=== PATIENT | male | born 1955 | race Caucasian/White ===

== ENCOUNTER → 2020-10-13 | Outpatient (CLI) | payer BC | LOC: M.LAB 07:22 | PROVIDERS: ATTEND Surgery | DX: L72.3 Sebaceous cyst (principal); E87.6 Hypokalemia; Z20.828 Contact with and (suspected) exposure to other viral communicable diseases ==

== ENCOUNTER 2021-01-07 21:19 | Inpatient (IN) | payer BC ==
[~2021-01-07] VITALS: Ht 188 cm; Wt 142.9 kg
--- NOTE | ~2021-01-07 | PROC ---
[address] [address] PROCEDURE REPORT Name: LYN BECK Room: [address] ADM IN M.R.#: [id number] Admission: 01/08/21 Attend Phys: Theresa Alas MD Discharge: Date of : 51 Report #: [id number] THIS REPORT FOR: cc: Yash Brenner MD, Matthew W. MD ~ [facility],Medical Records Staff For GI report, please see the Provation report in Perceptive 7 content. By: [id number] Records Staff [facility] /GLEND[place]
[2021-01-07 21:28] VITALS: BP 156/60
[2021-01-07] MEDS ORDERED: METFORMIN HCL500 M3 PO (21:34)
[2021-01-07] MEDS ORDERED: ELIQUIS5 MG PO (21:34)
[2021-01-07] MEDS ORDERED: LISINOPRIL10 MG PO (21:34)
[2021-01-07] MEDS ORDERED: IRON18 M1 PO (21:35)
[2021-01-07] MEDS ORDERED: DILTIAZEM ER180 M2 PO (21:35)
[2021-01-07] MEDS ORDERED: FUROSEMIDE 40 M40 MG PO (21:35)
[2021-01-07] MEDS ORDERED: PROSCAR 5MG TABL5 M1 PO (21:36)
[2021-01-07] MEDS ORDERED: PROTONIX 20 MG20 M1 PO (21:36)
[2021-01-07] MEDS ORDERED: INSULIN 70/30 (21:38)
[2021-01-07 22:15] LABS: ABSOLUTE BASOPHILS 0.1 thou/uL (0.0-0.2); ABSOLUTE EOSINOPHILS 0.1 thou/uL (0.0-0.7); ABSOLUTE LYMPHOCYTES 0.8 thou/uL (0.8-5.3); ABSOLUTE MONOCYTES 0.7 thou/uL (0.0-1.2); ABSOLUTE NEUTROPHILS 4.7 thou/uL (1.6-8.1); BASOPHILS 1.2 %; EOSINOPHILS 1.4 %; HEMATOCRIT 24.9 % (42.0-52.0); HEMOGLOBIN 7.6 gm/dL (14.0-18.0); LYMPHOCYTES 12.9 %; MCH 28.2 pg (26.0-34.0); MCHC 30.6 g/dL (28.0-37.0); MCV 92.1 fL (80.0-100.0); MONOCYTES 10.4 %; MPV 7.8 fl. (7.2-11.1); NUCLEATED RBCS 0 /100WBC; PLATELET COUNT* 345 thou/uL (150-400); POLYS 74.1 %; RDW-CV 14.6 % (10.5-14.5); WBC 6.3 thou/uL (4.0-11.0)
[2021-01-07 22:23] LABS: BE 6.3 mmol/L (-2 to +3); PO2 105.1 mmHg (75.0-100.0); pH 7.393 (7.340-7.450)
[2021-01-07 22:24] LABS: PCO2 54.2 mmHg (35.0-45.0)
[2021-01-07 22:29] LABS: APTT 27.5 Seconds (25.0-31.3); INR 1.1; PROTIME 11.4 Seconds (9.20-11.50)
[2021-01-07 22:48] LABS: POTASSIUM 4.8 mmol/L (3.5-5.1)
[2021-01-07 22:58] LABS: MAGNESIUM 2.3 mg/dL (1.8-2.4); PHOSPHORUS* 2.9 mg/dL (2.5-4.9); TOTAL BILIRUBIN 0.3 mg/dL (<0.1-1.0); TOTAL PROTEIN 6.8 g/dL (6.4-8.2)
[2021-01-07 22:59] LABS: URINE BILIRUBIN NEGATIVE (Negative); URINE BLOOD NEGATIVE (Negative); URINE CLARITY CLEAR; URINE COLOR YELLOW; URINE GLUCOSE-RANDOM TRACE (Negative); URINE KETONES NEGATIVE (Negative); URINE LEUKOCYTES-REFLEX NEGATIVE (Negative); URINE NITRITE-REFLEX NEGATIVE (Negative); URINE PROTEIN TRACE (Negative); URINE SPECIFIC GRAVITY 1.015 (1.005-1.030); URINE UROBILINOGEN 0.2 E.U./dl (0.2-1.0)
[2021-01-08 01:03] VITALS: BP 125/52
--- NOTE | 2021-01-08 04:07 | NUR ---
PT A+OX4. AMBULATED WITH STEADY GAIT FROM ER CART TO BATHROOM WITH O2 ON. PT REPORTS INCREASE SOA PAST WEEK. (CHRONIC) AFIB ON MONITOR. PT REQUESTED BREATHING TREATMENT. NOTIFIED BREATHING TREATMENT ORDERED AND RESPIRATORY NOTIFED. REPORT GIVEN TO MATHEW MCFADDEN.
[2021-01-08 04:36] VITALS: BP 126/50
--- NOTE | 2021-01-08 07:17 | NUR ---
ASSUMED PT CARE AT 0400. PT ADMITTED FOR DYSPNEA, GI BLEED W/ ANEMIA AND CHRONIC AFIB. PT IS A/OX4. PT HGB IS 7.4. PT HAD POSITIVE OCCULT STOOL CARDS IN ED. REPORT GIVEN TO DAYSHIFT NURSE TO HOLD PRESCRIBED ELIQUIS R/T GI BLEED AND ANEMIA. PT IS A.FIB ON THE MONITOR. PT HAS PRODUCTIVE COUGH. SPUTUM NOT OBSERVED. PT HAS PRN BREATHING TX'S ORDERED. PT IS ON 4L/NC. PTS LUNG SOUNDS ARE DIMINISHED. PT HAS CHRONIC COPD AND REPORTED SOA OVER THE PAST WEEK. PT O2 SAT 91%. PT HAS CHF. PT RLE IS 3+ EDEMA, LLE IS 2+. GASTROENTEROLOGY AND CARDIOLOGY HAS BEEN CONSULTED. PT IS NPO. PT HAS DIABETES. ACCUCHECK ACHS. PT DOES NOT RECALL THE NAME OF HIS HOME INSULIN. PT TO CONTACT TO CONFIRM INSULIN TYPE. DAYSHIFT NURSE NOTIFIED. PT DENIES C/O PAIN. PT RESTING IN BED WATCHING TV. FALL PRECAUTIONS IN PLACE FOR SAFETY. HOURLY ROUNDS COMPLETE CHARTED. MEDICATIONS ADMINISTERED PRESCRIBED. CALL LIGHT WITHIN REACH.
[2021-01-08 07:51] VITALS: BP 104/32
--- NOTE | 2021-01-08 08:58 | NUR ---
ASSUMED CARE OF PT THIS AM AROUND 0715- CARDAIC MONITOR IN PLACE ORDERED, TRACING AFIB/MARLA CONTROLLED- UPON ASSESSMENT PT NOTED TO BE RESTING IN BED- PT A&O X4-CONT OF BOWEL/BLADDER- MIN ASSIST X1 WITH RW FOR TRANSFERS- DIMINISED LUNG SOUNDS NOTED, DYSPNEA NOTED ON EXERTION- VSS, O2 SAT 91% ON 4L VIA NC- ABD SOFT/OBESE/NON-TENDER, BS X4 QUADS- LAST BM REPORTED 01/07/21- IV NOTED TO RIGHT AC INTACT AND SL- 2+ EDEMA NOTED TO LLE, 3+ RLE- CLEAR LIQIDS IN PLACE ORDERED, BS MONITORED ORDERED WITH SSI PRESCRIBED-CALL LIGHT AND PERSONAL BELONGINGS WITH IN REACH- ALL NEEDS MET AT THIS TIME
[2021-01-08] MEDS ORDERED: HUMULIN 70100 UNIT/2 SUBQ ×2 (09:13)
[2021-01-08] MEDS ORDERED: HUMALOG100 UNIT/1 SUBQ (09:14)
--- NOTE | 2021-01-08 11:59 | EKG ---
[place] [address] ELECTROCARDIOGRAM REPORT Name: LYN BECK Room: [address] ADM IN .R.#: [id number] Admission: 01/08/21 Attend Phys: Theresa Alas MD Discharge: Date of : 51 Date of Service: 01/07/212126 Report #: [id number] THIS REPORT FOR: //name// [facility] ED Test Date: 2021-01-07 Test Time: 21:27:13 Pat Name: LYN BECK Department: Room: [facility] Gender: M Biosecurity Officer: [place] : 1955 Requested By: Eva Nolasco Order Number: [id number] MD: Thomas Buenrostro Measurements Intervals [place] Rate: 85 P: PA: QRS: 82 QRSD: 88 T: 48 QT: 359 QTc: 427 Interpretive Statements Atrial fibrillation Borderline right axis deviation Borderline low voltage, extremity leads No previous ECG available for comparison Electronically Signed On 01-08-2021 11:59:44 VP PURCHASING by Thomas Buenrostro [email or web address] <ELECTRONICALLY SIGNED> By: Nae Buenrostro MD, FACC 01/08/21 1159 26 26 Nae Buenrostro MD, [facility] /EPI
[2021-01-08 12:00] VITALS: BP 145/61
[2021-01-08] MEDS ORDERED: FLOMAX0.4 MG PO (15:17)
[2021-01-08] MEDS ORDERED: ACTOS 45 MG45 M1 PO (15:23)
[2021-01-08] MEDS ORDERED: SIMVASTATIN40 MG PO (15:24)
[2021-01-08 16:00] VITALS: BP 120/56
[2021-01-08 20:00] VITALS: BP 148/57
[2021-01-09] VITALS (7 sets, daily range): BP systolic 137–158; BP diastolic 52–85
[2021-01-09 04:17] LABS: HEMATOCRIT 25.3 % (42.0-52.0); MCH 28.3 pg (26.0-34.0); MCHC 31.6 g/dL (28.0-37.0); MCV 89.7 fL (80.0-100.0); MPV 7.3 fl. (7.2-11.1); NUCLEATED RBCS 0 /100WBC; PLATELET COUNT* 359 thou/uL (150-400); RBC 2.83 mil/uL (4.50-6.00); RDW-CV 14.3 % (10.5-14.5)
[2021-01-09 04:52] LABS: ALBUMIN 3.1 g/dL (3.4-5.0); CALCIUM 8.6 mg/dL (8.5-10.1); CREATININE 1.1 mg/dL (0.6-1.3); POTASSIUM 4.5 mmol/L (3.5-5.1); TOTAL BILIRUBIN 0.3 mg/dL (<0.1-1.0); TOTAL PROTEIN 7.7 g/dL (6.4-8.2)
[2021-01-09 05:41] LABS: ABSOLUTE LYMPHOCYTES 0.1 thou/uL (0.8-5.3); ABSOLUTE NEUTROPHILS 6.9 thou/uL (1.6-8.1); PLATELET ESTIMATE ADEQUATE
[2021-01-09 05:42] LABS: ANISOCYTOSIS 1+; POIKILOCYTOSIS 1+
[2021-01-09 05:45] LABS: ESR (SEDRATE) 76 mm/hr (0-20)
--- NOTE | 2021-01-09 07:20 | NUR ---
CHJANGE OF SHIFT REPORT GIVEN PATIENT SEEN AT BEDSIDE, IN BED ASLEEP ASSUMED PATIENT CARE
--- NOTE | 2021-01-09 09:46 | NUR ---
cm completed the initial assessment to discuss d/c plan and home situation. pt is aaox4. lives home with spouse. pt uses walker, w/c, cpap and home o2 at 4L. pt receives visits from "[facility]." pt has hx with snf and hh but does recall the name of agency/facility. pt does not want hh d/t inability to exercise, exert w/o sob. pt stated he is independent w/adls. POC: pulmonary following. diuretic need. telemetry monitoring. bipap and o2 as needed. poss GI procedure.
--- NOTE | 2021-01-09 12:20 | 2DMMODE ---
[place] [address] 2 D/M-MODE ECHOCARDIOGRAM Name: LYN BECK Room: [address] IN [facility]#: [id number] Admission: 01/08/21 Attend Phys: Theresa Alas MD Discharge: Date of : 51 Date of Service: 01/09/21 1220 Report #: [id number] THIS REPORT FOR: cc: Yash Brenner MD, Matthew W. MD Holkins, John M. MD [facility] ~ APPROVED REPORT Study performed: 01/09/2021 10:44:44 EXAM: Comprehensive 2D, Doppler, and color-flow Echocardiogram Patient Location: In-Patient Room #: 228 Status: routine BSA: 2.62 HR: 70 bpm BP: 155/85 mmHg Rhythm: Atrial Fibrillation Other Information Study Quality: Good Indications Congestive Heart Failure Atrial Fibrillation Dyspnea 2D Dimensions IVSd: 11.74 (7-11mm) LVOT Diam: 20.98 (18-24mm) LVDd: 57.62 mm PWd: 10.67 (7-11mm) Ascending Ao: 31.76 (22-36mm) LVDs: 26.54 (25-40mm) Aortic Root: 30.93 mm Volumes Left Atrial Volume (Systole) LA ESV Index: 41.90 mL/m2 Aortic Valve AoV Peak David.: 1.88 m/s AO Peak Gr.: 14.08 mmHg LVOT Max P.61 mmHg AO Mean Gr.: 7.38 mmHg LVOT Mean P.59 mmHg LVOT Max V: 1.70 m/s AO V2 VTI: 37.71 cm LVOT Mean V: 1.09 m/[place] [address] 2 D/M-MODE ECHOCARDIOGRAM Name: EBONYLYN ARMANDO Room: [address] IN .R.#: [id number] Admission: 01/08/21 Attend Phys: Theresa Alas MD Discharge: Date of : 51 Date of Service: 01/09/21 1220 Report #: [id number] ANNA (VTI): 3.04 cm2 LVOT V1 VTI: 33.18 cm TDI Medial E' David.: 0.15 m/s Pulmonary Valve PV Peak David.: 1.34 m/s PV Peak Gr.: 7.16 mmHg Tricuspid Valve RAP Estimate: 15.00 mmHg TR Peak Gr.: 36.45 mmHg RVSP: 51.00 mmHg PA Pressure: 51.00 mmHg Left Ventricle The left ventricle is normal size. There is normal LV segmental wall motion. There is normal left ventricular wall thickness. Left ventricular systolic function is normal. The left ventricular ejection fraction is within the normal range. LVEF is 60-65%. This study is not technically sufficient to allow evaluation of the LV diastolic function due to atrial fibrillation. Right Ventricle The right ventricle is normal size. The right ventricular systolic function is normal. Atria Left atrium is mildly dilated. Right atrium is mildly dilated. Aortic Valve Mild aortic valve sclerosis. No aortic regurgitation is present. There is no aortic valvular stenosis. Mitral Valve There is mitral annular calcification. Trace mitral regurgitation. No evidence of mitral valve stenosis. Tricuspid Valve The tricuspid valve is normal in structure. Mild tricuspid regurgitation. Pulmonic Valve The pulmonary valve is normal in structure. There is no pulmonic valvular regurgitation[place] [address] 2 D/M-MODE ECHOCARDIOGRAM Name: LYN BECK Room: [address] IN .R.#: [id number] Admission: 01/08/21 Attend Phys: Theresa Alas MD Discharge: Date of : 51 Date of Service: 01/09/21 1220 Report #: [id number] The aortic root is normal in size. Pericardium There is no pericardial effusion. Left pleural effusion. <Conclusion> The left ventricle is normal size. There is normal left ventricular wall thickness. Left ventricular systolic function is normal. The left ventricular ejection fraction is within the normal range. LVEF is 60-65%. This study is not technically sufficient to allow evaluation of the LV diastolic function due to atrial fibrillation. The right ventricle is normal size. Left atrium is mildly dilated. Right atrium is mildly dilated. Mild aortic valve sclerosis. No aortic regurgitation is present. There is no aortic valvular stenosis. There is mitral annular calcification. Trace mitral regurgitation. The tricuspid valve is normal in structure. Mild tricuspid regurgitation. There is no pericardial effusion. There is normal LV segmental wall motion. Left pleural effusion. <ELECTRONICALLY SIGNED> By: Jordin Kimble MD, FACC 01/09/21 1220 1220 1220 Jordin Kimble MD, FACC /INF
[2021-01-09 15:15] LABS: CALCIUM 9.4 mg/dL (8.5-10.1); CREATININE 1.2 mg/dL (0.6-1.3); MAGNESIUM 2.5 mg/dL (1.8-2.4); POTASSIUM 4.8 mmol/L (3.5-5.1)
--- NOTE | 2021-01-09 19:12 | CON ---
[address] [address] CONSULTATION Name: LYN BECK Room: [address] IN M.R.#: [id number] Admission: 01/08/21 Attend Phys: Theresa Alas MD Discharge: Date of : 51 Report #: [id number] THIS REPORT FOR: cc: Yash Brenner MD, Matthew W. MD ~ Ok Fountain DO DATE OF SERVICE: 01/08/2021 REFERRING PHYSICIAN: Will Ashley MD REASON FOR CONSULTATION: Anemia with heme-positive stool. IMPRESSION: 1. Anemia with heme-positive stool -- evaluate his upper or lower GI tract source for the same. 2. Shortness of breath with possible extensive pneumonia and a possible left pleural effusion. 3. Chronic atrial fibrillation for which the patient is on chronic Eliquis for the same. 4. Hypertension and diabetes. 5. Status post recent I and D of MRSA infection in the left groin by Dr. Nazario Whipple. 6. Chronic obstructive pulmonary disease with continued tobacco use. RECOMMENDATIONS: 1. At the present time, I would like to wait for both Cardiology and Pulmonary to weigh in on whether the patient is an acceptable candidate for endoscopic evaluation. If so, we can proceed with an upper endoscopy in a couple of days and if this is unrevealing, proceed with a colonoscopy 1-2 days thereafter. I told him it would not be until Saturday. 2. We will consider doing an upper endoscopy. For this reason, I will go ahead and eat a heart healthy diet with diabetic restrictions. I have discussed the plans with the patient as well and he is agreeable to the same. HISTORY OF PRESENT ILLNESS: This is a pleasant, but very ill-appearing 65-year-old white male with multiple medical problems including hypertension, COPD, morbid obesity, diabetes and chronic lower extremity swelling, who was admitted to the hospital, because of problems with increasing shortness of breath. He is found to have extensive infiltrates in both lungs with mild pleural effusions. We were asked to see him because he had a hemoglobin only 7.4 and was found to have heme-positive stools. He denies any complaints of any dysphagia, odynophagia, but does have chronic acid reflux for which he takes either pantoprazole or omeprazole on a daily basis to help with the same. He denies any complaints of any postprandial pain or any problem [place] [address] CONSULTATION Name: LYN BECK Room: [address] IN [facility]#: [id number] Admission: 01/08/21 Attend Phys: Theresa Alas MD Discharge: Date of : 51 Report #: [id number] bowel frequency. He does note that recently over the last several weeks that his stools might have been darker than normal, but cannot tell me that he had actual melena. He denies any prior history of any problems related to his upper or lower GI tract and states he had longstanding reflux except for longstanding reflux. He has undergone endoscopic studies of his upper and lower GI tract in the past, but it has been over 10 years ago. He thinks his last colonoscopy was performed in [place] about 10 years ago. He does not recall them finding any problems. He does take nonsteroidals on 2 or 3 times a week at least in the form of ibuprofen up to 600 mg at a time. He has no history of problems related to his upper or lower GI tract, otherwise. ALLERGIES: None. MEDICATIONS: At home include metformin, Eliquis, lisinopril, iron, diltiazem, furosemide, Proscar, Protonix, Humulin insulin. PAST MEDICAL HISTORY: Remarkable for hypertension, chronic atrial fibrillation, diabetes, morbid obesity, history of anemia, COPD. He has had a compound fracture of his right lower extremity and he had recent I and D of the right inner thigh MRSA infection. He had a previous cholecystectomy in the remote past. SOCIAL HISTORY: The patient does smoke up to 3 to 10 cigarettes a day. He does not drink alcohol nor he has history of alcohol use. FAMILY HISTORY: Negative for GI malignancy. PHYSICAL EXAMINATION: GENERAL: Revealed ill-appearing 65-year-old white male who appears much older than his stated age. CARDIOPULMONARY: Revealed a regular rate and rhythm. LUNGS: Clear with diminished breath sounds at bases. ABDOMEN: Soft, not particularly tender. No rebound or guarding noted. EXTREMITIES: He has 4+ peripheral edema. LABORATORY DATA: From admission revealed a white count 6.3, hemoglobin 7.6, platelet count 345,000, MCV is 92.1 and RDW is 14.6. His complete metabolic panel revealed sodium 141, potassium 4.8, chloride 102, bicarbonate is 34, his BUN 16, creatinine 1.04, GFR of 75. Total bilirubin 0.3, alkaline phosphatase 132, AST is 16, ALT 12, albumin is 3.0. His CPK is 89. BNP is 869. CT angiogram of the chest with PE protocol revealed no evidence for pulmonary emboli. I looked at the upper abdominal structures on CT scan did not see any problems related to his liver, spleen, pancreas. He has postcholecystectomy changes. I do not see any thickening of his esophagus or stomach. [place] [id number] CONSULTATION Name: LYN BECK Room: [address] IN [facility].#: [id number] Admission: 01/08/21 Attend Phys: Theresa Alas MD Discharge: Date of : 51 Report #: [id number] DISCUSSION: At the present time, I will wait for Cardiology and Pulmonary to weigh in on the patient before proceeding with any endoscopic studies. We will check labs to evaluate his source of his anemia and make further recommendations during his hospital stay. We will hold off on placing him on any iron at this point in time in case he needs to have a bowel preparation and colonoscopy during the hospital stay. I have discussed those plans with the patient as well and he is agreeable to the same. <ELECTRONICALLY SIGNED> By: Ok Fountain DO 01/09/21 1912 1428 1623Gliane Fountain DO /nt
--- NOTE | 2021-01-09 20:00 | NUR ---
RECEIVED REPORT AND ASSUMED CARE OF PT, ASSESSMENT COMPLETED. SITTING UPON SIDE OF BED. MARIE LOWER LEGS EDEMATOUS, RT 3+ AND LT 2+. PT STATES MUCH IMPROVED. O2 ON AT 4L/NC, SOA WITH ACTIVITY. PT HAVING A FREQ MOIST COUGH WITH THICK WHITE SECRETIONS. ASKING FOR COUGH DROPS BUT EXPLAINED NEED TO GET OUT OF THE LUNGS. TELEMETRY ON SHOWING A-FIB. WILL CONT TO MONITOR AND ASSIST NEEDED.
--- NOTE | 2021-01-09 20:17 | CON ---
[address] [address] CONSULTATION Name: LYN BECK Room: [address] IN M.R.#: [id number] Admission: 01/08/21 Attend Phys: Theresa Alas MD Discharge: Date of : 51 Report #: [id number] THIS REPORT FOR: cc: Yash Brenner MD, Matthew W. MD ~ Douglas Ocampo MD DATE OF SERVICE: 01/09/2021 REQUESTING PHYSICIAN: Will Ashley MD INDICATION FOR CONSULTATION: Xniox-nc-acufzyn hypoxemic/hypercarbic respiratory failure. HISTORY OF PRESENT ILLNESS: A 65-year-old gentleman. He has previously had medical care at other institutions and therefore, I do not have previous records available; however, he states that he is an active smoker and does have a history of COPD as well as obstructive sleep apnea. 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 He also was anticoagulated for an atrial fibrillation, long-term with Eliquis. The patient is now admitted with increasing shortness of breath. He has also had a cough with some sputum and sputum has been clear as well as yellow. There is no chest pain. He has considerable increase in swelling of lower extremities. He has had some calf pain as well. He does have disturbed sleep at night as well as sleepiness during the day. These complaints are at his baseline. The patient is noted to be significantly anemic on initial presentation. REVIEW OF SYSTEMS: Negative for 12 points except as mentioned above. PAST MEDICAL HISTORY: COPD, on oxygen long-term; obstructive sleep apnea, on a BiPAP while asleep longterm; atrial fibrillation, anticoagulated with Eliquis; congestive heart failure secondary to diastolic dysfunction and atrial fibrillation, he has just had an echo, which shows a left ventricular ejection fraction of 60-65% with a pulmonary artery systolic of 51; diabetes; obesity with a body mass index around 40; compound fracture of right lower extremity; recent I and D of the right inner thigh with MRSA now reported to have healed. SOCIAL HISTORY: Extensive history of smoking. Has now cut down to about one-third of a pack a day, has smoked much more in the past. He has smoked for several decades. No known history of heavy alcohol use or illegal drug use. ALLERGIES: [place] [address] CONSULTATION Name: LYN BECK Room: [address] IN [facility]#: [id number] Admission: 01/08/21 Attend Phys: Theresa Alas MD Discharge: Date of : 51 Report #: [id number] CURRENT MEDICATIONS: List in [place] reviewed. HOME MEDICATIONS: List in [place] reviewed. Note that he is on Eliquis long-term. FAMILY HISTORY: There is no pertinent family history. PHYSICAL EXAMINATION: GENERAL: He is alert, awake and oriented, does not appear to be in any distress at this time. VITAL SIGNS: Pulse of 92 and a blood pressure of 155/85. He is saturating 95%. He is on 4 liters oxygen via nasal cannula. His respiratory rate is 18. He is afebrile with a temperature of 36.9. HEENT: Head is normocephalic and atraumatic. Pupils are equal and reactive. Body mass index is 39.9. There is no throat erythema. Airway is Mallampati 3. Mucous membranes are moist. NECK: Does not show raised JVP, asymmetry, mass or lymph nodes. CHEST: Symmetrical expansion on inspection and palpation. On auscultation, breath sounds are bilaterally equal, but decreased. I do not hear any added sounds. HEART: Irregular. There is no murmur. ABDOMEN: Mildly distended, nontender. EXTREMITIES: Lower extremities show 3+ edema bilaterally. There is no calf tenderness. SKIN: Moist and weepy. NEUROLOGICAL: Moves all extremities bilaterally equally and spontaneously with no focal deficit identified. LABORATORY DATA: The patient's chest x-ray as well as a CTA chest reports as well as films are reviewed. These are discussed below in more detail. In summary, there are findings consistent with congestive heart failure leading to bilateral pleural effusions. There is an infiltrate at the left lung base, a mass underlying cannot be ruled out. Venous Dopplers are negative. The patient's lab work is in [place] and this is reviewed. ASSESSMENT AND PLAN: 1. Ufqyf-us-nfthquo hypoxemic and hypercarbic respiratory failure. While the patient also does appear to have a chronic obstructive pulmonary disease exacerbation as well as an infiltrate in the left lower lobe, the primary etiology of the patient's decompensation at this time, appears to be fluid overload. He is on a BiPAP termite treater helper. We will continue BiPAP while here, he wants to use our machine while here. I will adjust the settings. Continue to titrate oxygen. 2. Congestive heart failure secondary to diastolic dysfunction and atrial [address] [address] CONSULTATION Name: LYN BECK Room: [address] IN M.R.#: [id number] Admission: 01/08/21 Attend Phys: Theresa Alas MD Discharge: Date of : 51 Report #: [id number] fibrillation. The patient is significantly fluid overloaded. Agree with IV Lasix. We will repeat labs this afternoon. If tolerated, I will give him additional diuresis. 3. Chronic obstructive pulmonary disease exacerbation. Agree with Solu-Medrol as well as nebulized bronchodilators. I will, however, be inclined to cut back the Solu-Medrol dose soon. 4. Pulmonary infiltrates/rule out underlying mass, primarily be seeing an infiltrate. Certainly underlying mass will be possible. He is currently on Levaquin. I agree with the same and will continue. Note that he has a history of MRSA infections in the past. In case he was to decline, I will consider adding MRSA coverage. He will need followup CAT scans to verify resolution of these findings. 5. Pleural effusions, fairly large pleural effusions bilaterally noted on the last CT. There may be some reduction in size of the chest x-ray I just performed today. I would favor first following response to diuresis. In case we are limited in diuresing him due to rise in BUN and creatinine, I may consider thoracentesis tomorrow. We may also consider a thoracentesis on the left side to characterize the fluid on the left side later as well. Note that he normally takes Eliquis, which currently is on hold. I will reassess tomorrow and advise. 6. Obstructive sleep apnea. See discussion as above. 7. Anemia/plans for GI scopes. I will favor that unless urgent. We try to correct his fluid status before proceeding to GI scopes and therefore if it is not urgent. I suggest holding off on GI scopes tomorrow, which we will try to correct fluid status enough for him to be able to undergo GI scopes Saturday or . 8. Evaluation for thromboembolic phenomena. The CTA chest is somewhat limited in evaluation for pulmonary emboli. However, my suspicion is fairly low. He takes Eliquis at home, I am not investigating further at this time. 9. Morbid obesity. 10. History of diabetes. 11. History of atrial fibrillation, on Eliquis long-term currently noted to be on hold. From a pulmonary point of view, it will be okay to give him prophylactic dose Lovenox while he is currently off Eliquis. I would defer to the GI service if they feel that it is safe from their point of view or not. As noted above, we may do a thoracentesis in the next day or 2, would favor continuing to hold Eliquis until a decision in this regard. Thanks for this consultation. <ELECTRONICALLY SIGNED> By: Douglas Ocampo MD 01/09/212016 1245 1711Amaria m Ocampo MD /nt
[2021-01-10 03:54] VITALS: BP 107/62
[2021-01-10 04:28] LABS: ABSOLUTE NEUTROPHILS 7.7 thou/uL (1.6-8.1); BASOPHILS 0.2 %; EOSINOPHILS 0.1 %; HEMATOCRIT 23.9 % (42.0-52.0); HEMOGLOBIN 7.6 gm/dL (14.0-18.0); LYMPHOCYTES 9.9 %; MCH 28.6 pg (26.0-34.0); MCV 89.5 fL (80.0-100.0); MONOCYTES 10.4 %; MPV 7.9 fl. (7.2-11.1); NUCLEATED RBCS 0 /100WBC; PLATELET COUNT* 392 thou/uL (150-400); POLYS 79.4 %; RBC 2.67 mil/uL (4.50-6.00); RDW-CV 14.2 % (10.5-14.5); WBC 9.8 thou/uL (4.0-11.0)
[2021-01-10 04:33] LABS: ALBUMIN 3.2 g/dL (3.4-5.0); CALCIUM 9.9 mg/dL (8.5-10.1); CREATININE 1.2 mg/dL (0.6-1.3); TOTAL BILIRUBIN 0.3 mg/dL (<0.1-1.0); TOTAL PROTEIN 7.6 g/dL (6.4-8.2)
[2021-01-10 08:44] VITALS: BP 138/53
[2021-01-10 11:58] VITALS: BP 123/57
--- NOTE | 2021-01-10 12:39 | NUR ---
PT ROUNDS: WAITING ON STABALIZATION OF LUNGS. COLONSCOPY. EGD.
--- NOTE | 2021-01-10 13:46 | NUR ---
PT RESTING AT THIS TIME.VSS ON 4LNC,HOME DOSE.AFIB ON MONITOR.PULMONARY ORDERED THRACENTESIS FOR TODAY.NPO AFTER MIDNIGHT FOR EGD IN AM.NOTHING FURTHER.CLWR.WCTM
--- NOTE | 2021-01-10 14:44 | NUR ---
PT STATES SOME CONFUSION ABOUT THORACENTESIS.REPORTS THAT HE WAS INFORMED THAT THERE MAY NOT BE ENOUGH TO TAKE OFF. PT DID CONSENT TO ULTRASOUND IMAGING TO BE TAKEN. AFTER RESULTS WERE REVIEWED WITH PT,PT REQUESTS TO SEE ORDERING PHYSICIAN FOR FURTHER EDUCATION ON POSSIBLE REMOVAL OF FLUID. PULMONOLOGY PAGED. AWAITING CALL.
[2021-01-10 16:54] VITALS: BP 136/58
[2021-01-10 20:00] VITALS: BP 137/51
[2021-01-11] VITALS: BP 103/70
[2021-01-11 04:39] LABS: ABSOLUTE LYMPHOCYTES 0.8 thou/uL (0.8-5.3); ABSOLUTE NEUTROPHILS 7.7 thou/uL (1.6-8.1); BASOPHILS 0.2 %; EOSINOPHILS 0.2 %; HEMATOCRIT 22.9 % (42.0-52.0); HEMOGLOBIN 7.2 gm/dL (14.0-18.0); LYMPHOCYTES 8.8 %; MCH 28.5 pg (26.0-34.0); MCHC 31.7 g/dL (28.0-37.0); MCV 89.9 fL (80.0-100.0); MONOCYTES 10.2 %; MPV 7.8 fl. (7.2-11.1); NUCLEATED RBCS 0 /100WBC; PLATELET COUNT* 356 thou/uL (150-400); POLYS 80.6 %; RBC 2.55 mil/uL (4.50-6.00); WBC 9.6 thou/uL (4.0-11.0)
[2021-01-11 04:54] LABS: CREATININE 1.1 mg/dL (0.6-1.3); POTASSIUM 4.5 mmol/L (3.5-5.1); TOTAL BILIRUBIN 0.3 mg/dL (<0.1-1.0); TOTAL PROTEIN 7.1 g/dL (6.4-8.2)
--- NOTE | 2021-01-11 06:40 | NUR ---
ASSESSMENTS COMPLETED AT BEDSIDE, PLEASE REFER TO CHARTING FOR DETAILS. MEDICATIONS ADMINISTERED PER MAR. HOURLY ROUNDING IN PLACE FOR PT SAFETY. PT HAS NO CURRENT C/O PAIN OR DISCOMFORT. PT HAS BEEN NPO SINCE 0000 FOR EGD SCHEDULED FOR TODAY. EDMEA SHOWING IMPROVEMENT TO BLE, ENCOURAGE PT TO ELEVATE MUCH POSSIBLE. ALL CURRENT NEEDS HAVE BEEN MET AT THIS TIME. PT REMAINS ON HIS HOME DOSE OF OXYGEN OF 4L NC AND BIPAP AT HS.
[2021-01-11 07:56] VITALS: BP 130/39
--- NOTE | 2021-01-11 09:32 | NUR ---
ASSUMED CARE OF PT THIS AM AROUND 714- LOADMASTER IN PLACE ORDERED, TRACING A-FIB, RATE CONTROLLED- UPON ASSESSMENT PT NOTED TO BE RESTING IN BED- PT A&O X4- CONT OF BOWEL AND BLADDER- UP SBA WITH TRANFES FOR SAFETY- VSS, O2 SAT 90% ON 4L- LCTA/DIMINISHED IN BASES, DYSPNEA NOTED ON EXERTION- PRODUCTIVE COUGH REPORTED- ABD SOFT/OBESE/NON-TENDER, BS X4 QUADS- LAST BM REPORTED X3 DAYS AGO- IV NOTED TO RIGHT FA INTACT AND SL, IV ABT GIVEN THIS AM PRESCRIBED- PT DENIES ANY C/O PAIN THIS AM- 2+ PITTING BLE EDEMA NOTED- PT CURRENLTY OFF UNIT FOR PLANNED EGD- ALL NEEDS MET AT THIS TIME
[2021-01-11 11:00] LABS: MAGNESIUM 2.5 mg/dL (1.8-2.4)
--- NOTE | 2021-01-11 11:23 | NUR ---
CM INFORMED DURING PRIME ROUNDING OF THE PLAN OF CARE FOR THE PT. GI CONSULTED AND PLAN FOR THE PT TO HAVE EGD TODAY AND POSSIBLY D/C TOMORROW. PT MAY NEED HH AT D/C. CM WILL REMAIN AVAILABLE TO ASSIST AND FOLLOW NEEDED.
--- NOTE | 2021-01-11 11:52 | NUR ---
Nutrition: Pt admitted with PNA. Assessed for high BMI. Wt: 315# trending up since admit. Pt with edema. True wt likely under BMI of 40. Pt is NPO for EGD today. Possible disch tomorrow. PMHx, labs, meds noted. Low risk.
[2021-01-11 14:22] VITALS: BP 136/62
[2021-01-11 17:24] VITALS: BP 140/64
[2021-01-12] VITALS: BP 139/56
[2021-01-12 04:00] VITALS: BP 152/62
[2021-01-12 04:52] LABS: ALBUMIN 3.2 g/dL (3.4-5.0); CALCIUM 9.2 mg/dL (8.5-10.1); CREATININE 1.1 mg/dL (0.6-1.3); MAGNESIUM 2.5 mg/dL (1.8-2.4); POTASSIUM 4.3 mmol/L (3.5-5.1); TOTAL BILIRUBIN 0.3 mg/dL (<0.1-1.0); TOTAL PROTEIN 7.1 g/dL (6.4-8.2)
[2021-01-12 05:11] LABS: ABSOLUTE LYMPHOCYTES 1.2 thou/uL (0.8-5.3); ABSOLUTE NEUTROPHILS 7.7 thou/uL (1.6-8.1); BASOPHILS 0.2 %; EOSINOPHILS 0.1 %; HEMATOCRIT 24.4 % (42.0-52.0); HEMOGLOBIN 7.8 gm/dL (14.0-18.0); LYMPHOCYTES 12.3 %; MCH 28.6 pg (26.0-34.0); MCHC 32.1 g/dL (28.0-37.0); MCV 89.1 fL (80.0-100.0); MONOCYTES 10.4 %; MPV 8.2 fl. (7.2-11.1); NUCLEATED RBCS 0 /100WBC; PLATELET COUNT* 378 thou/uL (150-400); RBC 2.74 mil/uL (4.50-6.00); RDW-CV 14.1 % (10.5-14.5)
--- NOTE | 2021-01-12 11:52 | NUR ---
CM INFORMED DURING PRIME ROUNDING OF THE PLAN OF CARE FOR THE PT. GI CONSULTED AND PLAN FOR THE PT TO HAVE COLONOSCOPY TOMORROW (01/13/21), AND POSSIBLY D/C AFTER PENDING RESULTS. PT MAY NEED HH AT D/C. CM WILL REMAIN AVAILABLE TO ASSIST AND FOLLOW FOR D/C PLANNING.
--- NOTE | 2021-01-12 14:46 | NUR ---
ASSUMED CARE OF PATIENT THIS AM AT 0730. PATIENT IS ALERT AND ORIENTED X 4. HE C/O GENERALIZED PAIN. TELE SHOWS ST. PATIENT KEPT NPO FOR CTA THIS AM. CTA POSITIVE FOR PE. PATIENT STARTED ON LOVENOX. IV ANTIBIOTICS INFUSED. PO PAIN MEDICATIONS GIVEN. PATIENT IS RESTING AT THIS TIME. WILL CONTINUE TO MONITOR.
[2021-01-12 16:31] VITALS: BP 120/43
[2021-01-12 20:00] VITALS: BP 122/63
[2021-01-12 23:45] VITALS: BP 134/61
[2021-01-13 04:03] VITALS: BP 120/59
[2021-01-13 04:10] LABS: HEMOGLOBIN 8.4 gm/dL (14.0-18.0); NUCLEATED RBCS 0 /100WBC; WBC 8.5 thou/uL (4.0-11.0)
[2021-01-13 04:12] LABS: ABSOLUTE LYMPHOCYTES 1.4 thou/uL (0.8-5.3); ABSOLUTE MONOCYTES 1.1 thou/uL (0.0-1.2); ABSOLUTE NEUTROPHILS 6.1 thou/uL (1.6-8.1); BASOPHILS 0.1 %; EOSINOPHILS 0.2 %; HEMATOCRIT 26.8 % (42.0-52.0); MCH 27.9 pg (26.0-34.0); MCHC 31.5 g/dL (28.0-37.0); MCV 88.6 fL (80.0-100.0); MONOCYTES 12.4 %; MPV 7.7 fl. (7.2-11.1); PLATELET COUNT* 383 thou/uL (150-400); POLYS 71.3 %; RBC 3.02 mil/uL (4.50-6.00); RDW-CV 14.2 % (10.5-14.5)
[2021-01-13 04:33] LABS: ALBUMIN 3.3 g/dL (3.4-5.0); CREATININE 1.1 mg/dL (0.6-1.3); POTASSIUM 3.9 mmol/L (3.5-5.1); TOTAL BILIRUBIN 0.3 mg/dL (<0.1-1.0); TOTAL PROTEIN 7.4 g/dL (6.4-8.2)
[2021-01-13 05:31] LABS: CALCIUM 9.7 mg/dL (8.5-10.1)
[2021-01-13 08:23] VITALS: BP 127/69
[2021-01-13 12:00] VITALS: BP 131/82
--- NOTE | 2021-01-13 12:00 | NUR ---
PT HAS BEEN RESTING IN ROOM.VSS ON 4L NC. AFIB ON MONITOR. PT GIVEN SOAP FEDE ENEMA X1.PT JUST TAKEN DOWN TO PACU FOR COLONOSCOPY. NOTHING FURTHER.WCTM
--- NOTE | 2021-01-13 12:16 | NUR ---
CM INFORMED DURING PRIME ROUNDING OF THE PLAN OF CARE FOR THE PT. GI CONSULTED AND PLAN FOR PT TO HAVE COLONOSCOPY TODAY AND D/C TOMORROW PENDING RESULTS. PT MAY NEED HH AT D/C, BUT IS DECLINING HH AT THIS TIME. CM TO F/U WITH PT PRIOR TO D/C TO DISCUSS HH NEED. CM WILL REMAIN AVAILABLE TO ASSIST AND FOLLOW NEEDED.
[2021-01-13 16:43] VITALS: BP 142/53
[2021-01-13 20:00] VITALS: BP 120/61
[2021-01-14] VITALS: BP 99/54
[2021-01-14 04:00] VITALS: BP 118/54
[2021-01-14 04:54] LABS: ABSOLUTE EOSINOPHILS 0.1 thou/uL (0.0-0.7); ABSOLUTE LYMPHOCYTES 1.4 thou/uL (0.8-5.3); ABSOLUTE NEUTROPHILS 7.6 thou/uL (1.6-8.1); BASOPHILS 0.1 %; EOSINOPHILS 0.6 %; HEMATOCRIT 25.4 % (42.0-52.0); HEMOGLOBIN 8.2 gm/dL (14.0-18.0); LYMPHOCYTES 13.9 %; MCH 28.4 pg (26.0-34.0); MCHC 32.2 g/dL (28.0-37.0); MCV 88.3 fL (80.0-100.0); MONOCYTES 9.7 %; MPV 8.3 fl. (7.2-11.1); NUCLEATED RBCS 0 /100WBC; PLATELET COUNT* 356 thou/uL (150-400); POLYS 75.7 %; RBC 2.88 mil/uL (4.50-6.00); RDW-CV 14.3 % (10.5-14.5)
[2021-01-14 05:08] LABS: ALBUMIN 3.1 g/dL (3.4-5.0); CALCIUM 9.4 mg/dL (8.5-10.1); CREATININE 1.3 mg/dL (0.6-1.3); POTASSIUM 4.1 mmol/L (3.5-5.1); TOTAL BILIRUBIN 0.2 mg/dL (<0.1-1.0)
--- NOTE | 2021-01-14 07:20 | NUR ---
CHANGE OF SHIFT BEDSIDE REPORT GIVEN PATIENT SEEN AT BEDSIDE IN BED WATCHING TV ASSUMED PATIENT CARE
[2021-01-14 08:00] VITALS: BP 136/67
[2021-01-14] MEDS ORDERED: PREDNISONE 10 M10 MG PO (08:52)
[2021-01-14] MEDS ORDERED: LEVOFLOXACIN750 MG PO (08:52)
[2021-01-14 11:19] VITALS: BP 136/67
--- NOTE | 2021-01-14 12:00 | NUR ---
DISCHARE TO HOME IV AND HEART MONITOR REMOVED PERSONAL BELONGIGNS RETURNED DISCHARGE INSTRUCTIONS GIVEN, ACKNOWLEDGED, AND COPIES OF DISCHARGE PAPERWORK GIVEN PATIENT ASSISTED OUT VIA WC GOOD CONDITION TO JARAD PICKETT
== END 2021-01-14 12:00 | disposition home or self-care (01) | DRG 177 ==
LOC: M.ERS 21:19 → M.2W 01-08 00:28 → M.TBA-ER 01-08 00:28 → M.2W 01-08 01:46
PROVIDERS: Internal Medicine; Internal Medicine Critical Care Medicine; Internal Medicine Gastroenterology; Personal Emergency Response Attendant; ADMIT Family Medicine; ATTEND Family Medicine
PROC: 5A09357 Assistance with Respiratory Ventilation, Less than 24 Consecutive Hours, Continuous Positive Airway Pressure (ICD-10-PCS; principal; 2021-01-09)
PROC: 5A09357 Assistance with Respiratory Ventilation, Less than 24 Consecutive Hours, Continuous Positive Airway Pressure (ICD-10-PCS; 2021-01-10)
PROC: 0DJ08ZZ Inspection of Upper Intestinal Tract, Via Natural or Artificial Opening Endoscopic (ICD-10-PCS; 2021-01-11)
PROC: 5A09357 Assistance with Respiratory Ventilation, Less than 24 Consecutive Hours, Continuous Positive Airway Pressure (ICD-10-PCS; 2021-01-11)
PROC: 5A09357 Assistance with Respiratory Ventilation, Less than 24 Consecutive Hours, Continuous Positive Airway Pressure (ICD-10-PCS; 2021-01-12)
PROC: 5A0935A Assistance with Respiratory Ventilation, Less than 24 Consecutive Hours, High Flow/Velocity Cannula (ICD-10-PCS; 2021-01-12)
PROC: 0DBP8ZZ Excision of Rectum, Via Natural or Artificial Opening Endoscopic (ICD-10-PCS; 2021-01-13)
PROC: 0DBM8ZZ Excision of Descending Colon, Via Natural or Artificial Opening Endoscopic (ICD-10-PCS; 2021-01-13)
DX: J15.6 Pneumonia due to other Gram-negative bacteria (principal); I50.33 Acute on chronic diastolic (congestive) heart failure; J96.22 Acute and chronic respiratory failure with hypercapnia; J96.21 Acute and chronic respiratory failure with hypoxia; K57.31 Diverticulosis of large intestine without perforation or abscess with bleeding; J44.1 Chronic obstructive pulmonary disease with (acute) exacerbation; I48.20 Chronic atrial fibrillation, unspecified; D62 Acute posthemorrhagic anemia; J91.8 Pleural effusion in other conditions classified elsewhere; Z68.41 Body mass index [BMI] 40.0-44.9, adult; J44.0 Chronic obstructive pulmonary disease with (acute) lower respiratory infection; E11.9 Type 2 diabetes mellitus without complications; G47.33 Obstructive sleep apnea (adult) (pediatric); Z20.822 Contact with and (suspected) exposure to COVID-19; E66.01 Morbid (severe) obesity due to excess calories; F17.210 Nicotine dependence, cigarettes, uncomplicated; I11.0 Hypertensive heart disease with heart failure; K63.5 Polyp of colon; R91.8 Other nonspecific abnormal finding of lung field; K44.9 Diaphragmatic hernia without obstruction or gangrene; K64.8 Other hemorrhoids; Z90.49 Acquired absence of other specified parts of digestive tract; Z87.81 Personal history of (healed) traumatic fracture; Z79.4 Long term (current) use of insulin

== ENCOUNTER 2021-02-24 03:56 | Inpatient (IN) | payer BC ==
[~2021-02-24] VITALS: Ht 188 cm; Wt 135.6 kg
[~2021-02-24 03:56] MED LIST: ACTOS 45 MG45 M1 PO; DILTIAZEM ER180 M2 PO; ELIQUIS5 MG PO; FLOMAX0.4 MG PO; FUROSEMIDE 40 M40 MG PO; HUMALOG100 UNIT/1 SUBQ; HUMULIN 70100 UNIT/2 SUBQ; INSULIN 70/30; IRON18 M1 PO; LEVOFLOXACIN750 MG PO; LISINOPRIL10 MG PO; METFORMIN HCL500 M3 PO; PREDNISONE 10 M10 MG PO; PROSCAR 5MG TABL5 M1 PO; PROTONIX 20 MG20 M1 PO; SIMVASTATIN40 MG PO
[2021-02-24 04:00] VITALS: BP 126/62
[2021-02-24 04:17] LABS: ABSOLUTE BASOPHILS 0.1 thou/uL (0.0-0.2); ABSOLUTE EOSINOPHILS 0.1 thou/uL (0.0-0.7); ABSOLUTE LYMPHOCYTES 1.5 thou/uL (0.8-5.3); ABSOLUTE MONOCYTES 0.8 thou/uL (0.0-1.2); ABSOLUTE NEUTROPHILS 5.7 thou/uL (1.6-8.1); BASOPHILS 1.4 %; EOSINOPHILS 1.7 %; HEMATOCRIT 32.3 % (42.0-52.0); HEMOGLOBIN 9.9 gm/dL (14.0-18.0); LYMPHOCYTES 18.4 %; MCH 25.7 pg (26.0-34.0); MCHC 30.7 g/dL (28.0-37.0); MCV 83.6 fL (80.0-100.0); MONOCYTES 10.1 %; MPV 8.1 fl. (7.2-11.1); NUCLEATED RBCS 0 /100WBC; PLATELET COUNT* 371 thou/uL (150-400); POLYS 68.4 %; RBC 3.86 mil/uL (4.50-6.00); RDW-CV 15.5 % (10.5-14.5); WBC 8.3 thou/uL (4.0-11.0)
[2021-02-24 04:26] LABS: CALCIUM 9.2 mg/dL (8.5-10.1); CREATININE 1.3 mg/dL (0.6-1.3); POTASSIUM 4.6 mmol/L (3.5-5.1)
[2021-02-24 05:42] LABS: PROTIME 10.9 Seconds (9.20-11.50)
[2021-02-24 05:59] VITALS: BP 133/55
[2021-02-24 20:00] VITALS: BP 118/67
[2021-02-24 23:40] VITALS: BP 140/53
[2021-02-25 03:25] VITALS: BP 140/66
[2021-02-25 07:30] VITALS: BP 105/51
[2021-02-25 20:00] VITALS: BP 140/63
[2021-02-25 23:45] VITALS: BP 133/69
[2021-02-26 04:00] VITALS: BP 124/43
[2021-02-26 08:00] VITALS: BP 103/73
[2021-02-26 12:00] VITALS: BP 103/73
[2021-02-26 20:00] VITALS: BP 155/61
[2021-02-27 00:52] VITALS: BP 142/47
[2021-02-27 08:04] VITALS: BP 135/66
--- NOTE | 2021-02-27 10:29 | EKG ---
[place] [address] ELECTROCARDIOGRAM REPORT Name: LYN BECK Room: [address] ADM IN ..#: [id number] Admission: 02/24/21 Attend Phys: Theresa Alas MD Discharge: Date of : 51 Date of Service: 02/24/21 0506 Report #: [id number] THIS REPORT FOR: //name// [facility] ED Test Date: 2021-02-24 Test Time: 05:06:51 Pat Name: LYN BECK Department: Room: [facility] Gender: M Network Relay Tester: TM : 1955 Requested By: Sandra Clemens Order Number: [id number] MD: Steve Galvan Measurements Intervals [place] Rate: 84 P: PA: QRS: 72 QRSD: 93 T: 14 QT: 366 QTc: 433 Interpretive Statements Atrial fibrillation RSR' in V1 or V2, right VCD or RVH Compared to ECG 01/07/2021 21:27:13 no change Electronically Signed On 02-27-2021 10:29:29 CDT by Steve Galvan [email or web address] <ELECTRONICALLY SIGNED> By: Steve Galvan MD, [facility] 02/27/21 1029 0506 0506 Steve Galvan MD, [facility] /EPI
[2021-02-27 17:10] VITALS: BP 147/80
[2021-02-27 19:34] LABS: ABSOLUTE BASOPHILS 0.1 thou/uL (0.0-0.2); ABSOLUTE EOSINOPHILS 0.2 thou/uL (0.0-0.7); ABSOLUTE LYMPHOCYTES 0.9 thou/uL (0.8-5.3); ABSOLUTE MONOCYTES 0.8 thou/uL (0.0-1.2); ABSOLUTE NEUTROPHILS 5.7 thou/uL (1.6-8.1); BASOPHILS 0.8 %; HEMATOCRIT 27.2 % (42.0-52.0); HEMOGLOBIN 8.5 gm/dL (14.0-18.0); LYMPHOCYTES 12.3 %; MCH 26.1 pg (26.0-34.0); MCHC 31.2 g/dL (28.0-37.0); MCV 83.7 fL (80.0-100.0); MONOCYTES 10.1 %; NUCLEATED RBCS 0 /100WBC; PLATELET COUNT* 318 thou/uL (150-400); POLYS 73.8 %; RBC 3.25 mil/uL (4.50-6.00); RDW-CV 15.7 % (10.5-14.5); WBC 7.7 thou/uL (4.0-11.0)
[2021-02-27 19:45] LABS: ALBUMIN 2.8 g/dL (3.4-5.0); CALCIUM 9.2 mg/dL (8.5-10.1); CREATININE 1.3 mg/dL (0.6-1.3); POTASSIUM 5.7 mmol/L (3.5-5.1); TOTAL BILIRUBIN 0.2 mg/dL (<0.1-1.0); TOTAL PROTEIN 7.4 g/dL (6.4-8.2)
[2021-02-27 21:00] VITALS: BP 136/49
[2021-02-28 08:00] VITALS: BP 120/73
[2021-02-28 12:25] LABS: HEMOGLOBIN 8.6 gm/dL (14.0-18.0); MCH 25.7 pg (26.0-34.0); MCHC 30.8 g/dL (28.0-37.0); MCV 83.5 fL (80.0-100.0); MPV 8.4 fl. (7.2-11.1); RBC 3.35 mil/uL (4.50-6.00); RDW-CV 16.1 % (10.5-14.5); WBC 9.8 thou/uL (4.0-11.0)
[2021-02-28 13:25] LABS: CALCIUM 9.5 mg/dL (8.5-10.1); POTASSIUM 5.8 mmol/L (3.5-5.1)
[2021-02-28 16:00] VITALS: BP 133/64
[2021-02-28 19:58] VITALS: BP 130/73
[2021-02-28 23:55] VITALS: BP 127/57
[2021-03-01 04:03] VITALS: BP 136/60
[2021-03-01 06:08] LABS: HEMATOCRIT 26.8 % (42.0-52.0); HEMOGLOBIN 8.5 gm/dL (14.0-18.0); MCH 26.2 pg (26.0-34.0); MCHC 31.6 g/dL (28.0-37.0); MCV 82.9 fL (80.0-100.0); MPV 7.9 fl. (7.2-11.1); RBC 3.24 mil/uL (4.50-6.00); RDW-CV 15.9 % (10.5-14.5); WBC 10.7 thou/uL (4.0-11.0)
[2021-03-01 07:00] LABS: CALCIUM 9.2 mg/dL (8.5-10.1); CREATININE 1.2 mg/dL (0.6-1.3)
[2021-03-01 07:02] LABS: POTASSIUM 4.3 mmol/L (3.5-5.1)
[2021-03-01 07:16] LABS: PROTIME 10.7 Seconds (9.20-11.50)
[2021-03-01 08:00] VITALS: BP 137/61
[2021-03-01 19:58] VITALS: BP 133/56
[2021-03-01 22:50] VITALS: BP 143/57
--- NOTE | 2021-03-01 23:33 | CON ---
[address] [address] CONSULTATION Name: LYN BECK Room: [address] IN M.R.#: [id number] Admission: 02/24/21 Attend Phys: Theresa Alas MD Discharge: Date of : 51 Report #: [id number] THIS REPORT FOR: cc: Yash Brenner MD, Matthew W. MD Pervez, Adeel MD ~ DOC #: [id number] Douglas Ocampo MD DATE OF CONSULTATION: 02/27/2021 CONSULT REQUESTED BY: Dr. Desai INDICATION FOR CONSULTATION: Preoperative pulmonary evaluation for orthopedic surgery. HISTORY OF PRESENT ILLNESS: This is a 65-year-old gentleman with past medical history is as mentioned below. He does have a history of oxygen dependent COPD. 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 I have previously seen him in a previous admission at this hospital. The patient also is on long-term anticoagulation with Eliquis and does have obstructive sleep apnea as well as atrial fibrillation as well. At this time, he is admitted on 02/24 presentation is with near syncope and he had an ankle fracture. The patient does complain of shortness of breath and on my examination, he is bronchospastic. However, he does not report any increase in shortness of breath compared with his baseline. He does have a cough also at baseline. No chest pain. No new upper respiratory complaints. He has swelling of lower extremities. He states that this is no different from his baseline prior to admission and a fall when he fractured his left ankle. He has had disturbed sleep at night as well as sleepiness during the day and has had partial use of BiPAP, these are unchanged. REVIEW OF SYSTEMS: A 12 points is negative except as mentioned above. PAST MEDICAL HISTORY: COPD, oxygen long-term; obstructive sleep apnea, BiPAP long-term; atrial fibrillation, anticoagulation with Eliquis long-term; congestive heart failure, last echo normal left ventricular ejection fraction 60-65, pulmonary artery systolic elevated to 51; diabetes; obesity, body mass index elevated to around 40. He has had a previous compound fracture of the right lower extremity, had a lesion on the right inner thigh, which was positive for MRSA, for which he had I and D performed in the past. SOCIAL HISTORY: Extensive history of smoking about a pack a day for several decades. He is not fully clear to me as to whether the patient has now discontinued or not. No known history of heavy alcohol use [place] [address] CONSULTATION Name: LYN BECK Room: [address] IN [facility]#: [id number] Admission: 02/24/21 Attend Phys: Theresa Alas MD Discharge: Date of : 51 Report #: [id number] ALLERGIES: No known drug allergies. CURRENT MEDICATION: List in [address] reviewed. HOME MEDICATIONS: List in [address] reviewed. FAMILY HISTORY: There is no pertinent family history known at this time. ALLERGIES: No known drug allergies. PHYSICAL EXAMINATION: GENERAL: Alert, awake and oriented, does not appear to be in any distress at this time. VITAL SIGNS: Pulse of 82 and blood pressure of 147/80. He is saturating 96%. He is on 4.5 liters nasal cannula. Respiratory rate is 18. He is afebrile with a temperature of 36.3. HEENT: Head is normocephalic and atraumatic. Pupils are equal and reactive. There is no throat erythema. He has a narrow airway. NECK: Does not show raised JVP asymmetry, mass or lymph nodes. CHEST: Symmetrical expansion on inspection and palpation. On auscultation, breath sounds are bilaterally equal, but decreased. There are expiratory wheezes bilaterally. HEART: Regular. There is no murmur. ABDOMEN: Mildly distended, nontender. EXTREMITIES: Lower extremities, 1+ edema, more on the left than the right. No calf tenderness. Skin is dry and intact. He has bandages in place over the left ankle, which I did not remove. NEUROLOGIC: Moves all extremities bilaterally equally and spontaneously with no focal deficits identified. LABORATORY DATA: I have ordered a chest x-ray now and reviewed and compared with the patient's previous chest x-rays. In summary, there are chronic changes consistent with COPD as well as suspected there may be an interstitial lung disease as well. The patient's lab work [email or web address], which was reviewed. I just ordered repeat labs, which are pending. ASSESSMENT/PLAN: 1. Preoperative pulmonary evaluation for surgery for left ankle fracture. We obtained a chest x-ray as above. I would also go ahead and obtain some labs now and then advise further. While he does not complain of any increasing shortness of breath, I do feel that he has some bronchospasm and therefore, we will go ahead and give him some steroids prior to his planned surgery. Noted that the patient is on Eliquis. [address] [address] CONSULTATION Name: LYN BECK Room: [address] IN M.R.#: [id number] Admission: 02/24/21 Attend Phys: Theresa Alas MD Discharge: Date of : 51 Report #: [id number] 2. Chronic obstructive pulmonary disease as above. I ordered 2 doses of Solu-Medrol overnight. We will reassess further tomorrow. He is on nebulized bronchodilators. He is wheezing on my exam; however, he did not have increasing shortness of breath compared with his baseline. 3. Obstructive sleep apnea. He is on a BiPAP at home long-term. I will place him on one of our BiPAP here for now, it will be in fact more important that he uses it in the perioperative period. 4. Interstitial lung disease. His x-rays are consistent with an interstitial lung disease, this may require further workup, obviously deferred for now. 5. Atrial fibrillation noted to be on Eliquis, defer to orthopedic service as to how long this was held before surgery. 6. History of morbid obesity. Thanks for this consultation. Douglas Ocampo MD AP/LANCE <ELECTRONICALLY SIGNED> By: Douglas Ocampo MD 03/01/21 2333 1819 [id number] m Ocampo MD /nt
[2021-03-02] MEDS ORDERED: SLOW FE142 MG PO (01:58)
[2021-03-02] MEDS ORDERED: MAGNESIUM250 M1 PO (01:59)
[2021-03-02] MEDS ORDERED: LORAZEPAM 0.50.5 MG PO (02:01)
[2021-03-02] MEDS ORDERED: DILTIAZEM ER120 MG PO (02:03)
[2021-03-02 03:14] VITALS: BP 129/50
[2021-03-02 04:58] LABS: ABSOLUTE EOSINOPHILS 0.1 thou/uL (0.0-0.7); ABSOLUTE LYMPHOCYTES 0.7 thou/uL (0.8-5.3); ABSOLUTE MONOCYTES 1.3 thou/uL (0.0-1.2); ABSOLUTE NEUTROPHILS 8.6 thou/uL (1.6-8.1); BASOPHILS 0.4 %; EOSINOPHILS 1.4 %; HEMATOCRIT 29.3 % (42.0-52.0); LYMPHOCYTES 6.4 %; MCH 25.9 pg (26.0-34.0); MCHC 30.8 g/dL (28.0-37.0); MCV 84.2 fL (80.0-100.0); MONOCYTES 12.4 %; MPV 7.4 fl. (7.2-11.1); NUCLEATED RBCS 0 /100WBC; PLATELET COUNT* 363 thou/uL (150-400); POLYS 79.4 %; RBC 3.49 mil/uL (4.50-6.00); RDW-CV 16.2 % (10.5-14.5); WBC 10.8 thou/uL (4.0-11.0)
[2021-03-02 05:04] LABS: CALCIUM 9.4 mg/dL (8.5-10.1); CREATININE 1.1 mg/dL (0.6-1.3); MAGNESIUM 2.4 mg/dL (1.8-2.4); POTASSIUM 5.1 mmol/L (3.5-5.1)
[2021-03-02 08:25] VITALS: BP 139/78
[2021-03-02 12:12] VITALS: BP 119/66
[2021-03-02 16:00] VITALS: BP 135/75
[2021-03-03 00:19] VITALS: BP 138/61
[2021-03-03 04:42] VITALS: BP 165/70
[2021-03-03 05:11] LABS: CALCIUM 9.3 mg/dL (8.5-10.1); CREATININE 1.1 mg/dL (0.6-1.3); POTASSIUM 4.6 mmol/L (3.5-5.1)
[2021-03-03 07:57] LABS: HEMATOCRIT 29.7 % (42.0-52.0); HEMOGLOBIN 8.9 gm/dL (14.0-18.0)
[2021-03-03 08:14] VITALS: BP 115/61
[2021-03-03 15:39] VITALS: BP 133/66
[2021-03-04 05:34] LABS: HEMATOCRIT 27.6 % (42.0-52.0); HEMOGLOBIN 8.5 gm/dL (14.0-18.0); MCH 25.6 pg (26.0-34.0); MCHC 30.9 g/dL (28.0-37.0); MCV 82.8 fL (80.0-100.0); MPV 7.9 fl. (7.2-11.1); RBC 3.33 mil/uL (4.50-6.00); RDW-CV 16.1 % (10.5-14.5); WBC 8.9 thou/uL (4.0-11.0)
[2021-03-04 05:51] LABS: CALCIUM 9.1 mg/dL (8.5-10.1); CREATININE 1.1 mg/dL (0.6-1.3); POTASSIUM 4.4 mmol/L (3.5-5.1)
[2021-03-04 08:10] VITALS: BP 136/67
[2021-03-04 16:22] VITALS: BP 108/52
[2021-03-04 18:06] LABS: ANTI-DNA SCREEN <1 IU/mL (0-9); ANTI-RNP 0.2 AI (0.0-0.9); ANTI-SSA <0.2 AI (0.0-0.9); ANTIJO-I AB <0.2 AI (0.0-0.9)
[2021-03-04 20:00] VITALS: BP 122/53
[2021-03-05 05:09] LABS: HEMATOCRIT 27.7 % (42.0-52.0); HEMOGLOBIN 8.7 gm/dL (14.0-18.0); MCH 26.2 pg (26.0-34.0); MCHC 31.5 g/dL (28.0-37.0); MCV 83.1 fL (80.0-100.0); MPV 7.7 fl. (7.2-11.1); RBC 3.33 mil/uL (4.50-6.00); WBC 7.8 thou/uL (4.0-11.0)
[2021-03-05 05:17] LABS: CALCIUM 9.9 mg/dL (8.5-10.1); CREATININE 1.1 mg/dL (0.6-1.3); POTASSIUM 4.4 mmol/L (3.5-5.1)
[2021-03-05] MEDS ORDERED: TRAMADOL 50 MG50 MG PO (07:23)
[2021-03-05] MEDS ORDERED: PERCOCET 10-321 EACH PO (07:23)
[2021-03-05 07:50] VITALS: BP 114/51
[2021-03-05 16:00] VITALS: BP 116/47
[2021-03-05 20:00] VITALS: BP 134/66
[2021-03-06 16:28] VITALS: BP 155/63
[2021-03-06 19:20] VITALS: BP 135/51
[2021-03-07 16:25] VITALS: BP 142/54
[2021-03-07 20:00] VITALS: BP 126/49
[2021-03-08 07:35] VITALS: BP 115/42
[2021-03-08 16:46] VITALS: BP 139/58
[2021-03-08 20:00] VITALS: BP 130/60
[2021-03-09 08:23] VITALS: BP 143/66
[2021-03-09 08:55] VITALS: BP 143/66
--- NOTE | 2021-03-12 12:47 | OP ---
[address] [address] OPERATIVE REPORT Name: LYN BECK Room: [address] IN M.R.#: [id number] Admission: 02/24/21 Attend Phys: Theresa Alas MD Discharge: 03/09/21 Date of : 51 Report #: [id number] THIS REPORT FOR: cc: Yash Brenner MD, Matthew W. MD Orth, Charles DO ~ DOC #: [id number] Khadar Knight DO DATE OF SURGERY: 03/01/2021 ORTHOPEDIC SURGERY NOTE PREOPERATIVE DIAGNOSIS: Left ankle closed trimalleolar fracture dislocation and disruption of syndesmosis. POSTOPERATIVE DIAGNOSIS: Left ankle closed trimalleolar fracture dislocation and disruption of syndesmosis. SURGERY PERFORMED: Open reduction and internal fixation of the medial side, lateral side and syndesmosis screw fixation. SURGEON: Khadar Knight DO ZOO DIRECTOR: Dr. Krishna SECOND INTERNAL GRINDER: Dr. Jarvsi ANESTHESIA: General anesthetic. Did receive 1 g of Rocephin preoperatively. ESTIMATED BLOOD LOSS: Minimal. SPECIMENS: No specimens. COMPLICATIONS: No complications. DRAINS: No drains. GROSS FINDINGS: Prior to surgery this patient did have the fall episode and his x-rays correlated with intraoperative findings of a trimalleolar fracture. Post-internal fixation; however, demonstrated near anatomic reduction AP and lateral views. It was noted intraoperatively as well. 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 SURGERY IN DETAIL: The patient was taken to the operating room and placed on [address] [address] OPERATIVE REPORT Name: LYN BECK ARMANDO Room: [address] IN M.R.#: [id number] Admission: 02/24/21 Attend Phys: Theresa Alas MD Discharge: 03/09/21 Date of : 51 Report #: [id number] the table, given the benefit of general anesthetic. A well-padded tourniquet placed on his left lower extremity. He underwent a Hibiclens scrub, chlorhexidine prep and sterile draping for left ankle surgery. Timeout was called and verified by everyone in the room for the left ankle. Surgery began with Esmarch in the extremity, tourniquet inflated at this time to 300 mmHg. I did start laterally with a longitudinal incision around the tip of the fibula extending proximally through skin and subcutaneous tissues. After skin and subcutaneous tissue dissection, the superficial peroneal nerve was away more distal than normally, but was easily visible and it was totally dissected out. At this point in time, I did then a sharp dissection through the fracture site, removed the invaginated tissue that was present in the fracture. I pulled the fracture apart copiously irrigated, cleaned out with curette. The more distal fragment had several comminuted pieces to it. At this point in time, I did a point reduction and elected to place a lag screw across the 2 main fracture fragments. Lag screw was easily applied. A locking Dwayne distal fibular plate was now locked to the distal fibula and then proximally, I put cortical screw was then placed to hold it. Easily this was a good fixation. Once the proximal and distal ends were fixated, I did not do syndesmosis screws yet as I went ahead and went to the medial side first. A 6 cm longitudinal incision was made over the medial malleolus site through skin and subcutaneous tissues. Blunt dissection was carried down to the easily palpable fracture. The fracture had significant invaginated tissue was all removed. The fracture was opened up again curetted, invaginated tissue removed, copiously irrigated and cleaned it out with several loose pieces were removed. I did do a point to point reduction to hold the fracture in place and 2 K-wires were placed under direct visualization and then checked with C-arm to make sure they were in appropriate position and 2 cancellous [place] screws were placed on the medial side. K-wires were removed. Once the medial side was fixed, I stressed the ankle mortise and the syndesmosis opened up, so I did go ahead and place two syndesmotic screws from lateral to medial using C-arm for guidance as well. Last x-rays were taken post-closure and the dome of the tibia was completely restored definitely right over the talus. I did not need to address the posterior fragment, it was small in nature. Surgery continued copious irrigation of both sides. The deep tissue layer was closed with 0 Vicryl in qpymrt-ub-mjamr fashion. Subcutaneous tissues on both sides 2-0 Monocryl in inverted fashion. Stxdqv-qj-mlard sutures of 3-0 nylon were used on the skin. Xeroform, 4 x 4's, Kerlix, soft roll, posterior splint, Brody wrap dressing was applied. He was transferred off table, taken to recovery in stable condition. I attest I was present for all critical aspects of surgery. Needle, instrument and sponge counts correct. Khadar Knight DO CO/AUDII [address] [address] OPERATIVE REPORT Name: LYN BECK Room: [address] IN M.R.#: [id number] Admission: 02/24/21 Attend Phys: Theresa Alas MD Discharge: 03/09/21 Date of : 51 Report #: [id number] <ELECTRONICALLY SIGNED> By: Khadar Knight DO 03/12/21 1247 1336 1718Khadar Knight DO /doris
== END 2021-03-09 10:45 | DRG 493 ==
LOC: M.ERS 03:56 → M.TBA-ER 05:25 → M.2W 05:59 → M.ORTHSURG 06:00 → M.2W 08:13 → M.ORTHSURG 08:13 → M.2W 02-26 12:28 → M.ORTHSURG 02-27 10:00
PROVIDERS: Anesthesiology; Emergency Medicine; Internal Medicine; Internal Medicine Critical Care Medicine; Orthopaedic Surgery; ADMIT Family Medicine; ATTEND Family Medicine
PROC: 2W3RX1Z Immobilization of Left Lower Leg using Splint (ICD-10-PCS; 2021-02-24)
PROC: 5A09357 Assistance with Respiratory Ventilation, Less than 24 Consecutive Hours, Continuous Positive Airway Pressure (ICD-10-PCS; 2021-02-28)
PROC: 0SSG04Z Reposition Left Ankle Joint with Internal Fixation Device, Open Approach (ICD-10-PCS; principal; 2021-03-01)
PROC: 0QSK04Z Reposition Left Fibula with Internal Fixation Device, Open Approach (ICD-10-PCS; principal; 2021-03-01)
PROC: 0QSH04Z Reposition Left Tibia with Internal Fixation Device, Open Approach (ICD-10-PCS; principal; 2021-03-01)
PROC: 5A09357 Assistance with Respiratory Ventilation, Less than 24 Consecutive Hours, Continuous Positive Airway Pressure (ICD-10-PCS; 2021-03-01)
PROC: 5A09357 Assistance with Respiratory Ventilation, Less than 24 Consecutive Hours, Continuous Positive Airway Pressure (ICD-10-PCS; 2021-03-03)
DX: S82.852A Displaced trimalleolar fracture of left lower leg, initial encounter for closed fracture (principal); J96.10 Chronic respiratory failure, unspecified whether with hypoxia or hypercapnia; I50.30 Unspecified diastolic (congestive) heart failure; Z20.822 Contact with and (suspected) exposure to COVID-19; J44.9 Chronic obstructive pulmonary disease, unspecified; T67.1XXA Heat syncope, initial encounter; G47.33 Obstructive sleep apnea (adult) (pediatric); E66.01 Morbid (severe) obesity due to excess calories; K59.00 Constipation, unspecified; N40.1 Benign prostatic hyperplasia with lower urinary tract symptoms; D50.9 Iron deficiency anemia, unspecified; R33.8 Other retention of urine; E11.649 Type 2 diabetes mellitus with hypoglycemia without coma; I65.29 Occlusion and stenosis of unspecified carotid artery; W18.39XA Other fall on same level, initial encounter; I48.91 Unspecified atrial fibrillation; Z87.891 Personal history of nicotine dependence; Z68.38 Body mass index [BMI] 38.0-38.9, adult; Y93.89 Activity, other specified; Y92.098 Other place in other non-institutional residence as the place of occurrence of the external cause; Y99.8 Other external cause status

== ENCOUNTER 2021-03-20 07:44 | Inpatient (IN) | payer BC ==
[~2021-03-20] VITALS: Ht 188 cm; Wt 136.5 kg
[~2021-03-20 07:44] MED LIST changes: +DILTIAZEM ER120 MG PO; +LORAZEPAM 0.50.5 MG PO; +MAGNESIUM250 M1 PO; +PERCOCET 10-321 EACH PO; +SLOW FE142 MG PO; +TRAMADOL 50 MG50 MG PO
[2021-03-20 07:45] VITALS: BP 127/42
[2021-03-20 08:29] LABS: ABSOLUTE EOSINOPHILS 0.3 thou/uL (0.0-0.7); ABSOLUTE LYMPHOCYTES 1.2 thou/uL (0.8-5.3); EOSINOPHILS 4.3 %; MCV 82.9 fL (80.0-100.0)
[2021-03-20 08:31] LABS: ABSOLUTE BASOPHILS 0.1 thou/uL (0.0-0.2); ABSOLUTE MONOCYTES 0.7 thou/uL (0.0-1.2); ABSOLUTE NEUTROPHILS 5.5 thou/uL (1.6-8.1); BASOPHILS 0.8 %; HEMATOCRIT 26.3 % (42.0-52.0); HEMOGLOBIN 8.3 gm/dL (14.0-18.0); LYMPHOCYTES 15.7 %; MCHC 31.4 g/dL (28.0-37.0); MONOCYTES 9.3 %; NUCLEATED RBCS 0 /100WBC; PLATELET COUNT* 331 thou/uL (150-400); POLYS 69.9 %; RBC 3.17 mil/uL (4.50-6.00); RDW-CV 16.8 % (10.5-14.5); WBC 7.9 thou/uL (4.0-11.0)
[2021-03-20 08:41] LABS: CALCIUM 9.4 mg/dL (8.5-10.1); CREATININE 1.6 mg/dL (0.6-1.3); POTASSIUM 4.5 mmol/L (3.5-5.1); PROTIME 10.9 Seconds (9.20-11.50)
[2021-03-20 08:52] LABS: MAGNESIUM 2.3 mg/dL (1.8-2.4); TOTAL BILIRUBIN 0.1 mg/dL (<0.1-1.0); TOTAL PROTEIN 7.2 g/dL (6.4-8.2)
--- NOTE | 2021-03-20 10:36 | EKG ---
[place] [address] ELECTROCARDIOGRAM REPORT Name: LYN BECK Room: [address] [address] ADM IN [facility]#: [id number] Admission: 03/20/21 Attend Phys: Anamika Desai, Discharge: Date of : 51 Date of Service: 03/20/21 0747 Report #: [id number] THIS REPORT FOR: //name// [facility] ED Test Date: 2021-03-20 Test Time: 07:47:13 Pat Name: LYN BECK Department: Room: [facility] Gender: M Floatman: CCD : 1955 Requested By: Bryson Toledo Order Number: [id number] MD: Steve Galvan Measurements Intervals [place] Rate: 76 P: WI: QRS: 77 QRSD: 99 T: 22 QT: 364 QTc: 410 Interpretive Statements Atrial fibrillation Borderline low voltage, extremity leads RSR' in V1 or V2, probably normal variant Compared to ECG 02/24/2021 05:06:51 no change Electronically Signed On 03-20-2021 10:35:57 CDT by Steve Galvan [email or web address] <ELECTRONICALLY SIGNED> By: Steve Galvan MD, [facility] 03/20/21 1035 0747 0747 Steve Galvan MD, [facility] /EPI
[2021-03-20 10:55] VITALS: BP 156/60
[2021-03-20 11:30] VITALS: BP 124/67
[2021-03-20 16:09] VITALS: BP 151/61
[2021-03-20] MEDS ORDERED: IPRAT-ALBUT 0.5-3 ML INH (18:56)
[2021-03-20 23:50] VITALS: BP 143/59
[2021-03-21 04:00] VITALS: BP 142/69
[2021-03-21 04:32] LABS: HEMATOCRIT 31.2 % (42.0-52.0); HEMOGLOBIN 9.6 gm/dL (14.0-18.0); MCH 25.9 pg (26.0-34.0); MCHC 30.7 g/dL (28.0-37.0); MCV 84.5 fL (80.0-100.0); MPV 9.1 fl. (7.2-11.1); RBC 3.69 mil/uL (4.50-6.00); RDW-CV 17.2 % (10.5-14.5); WBC 8.7 thou/uL (4.0-11.0)
[2021-03-21 04:49] LABS: ALBUMIN 3.2 g/dL (3.4-5.0); CALCIUM 9.9 mg/dL (8.5-10.1); CREATININE 1.5 mg/dL (0.6-1.3); MAGNESIUM 2.4 mg/dL (1.8-2.4); TOTAL BILIRUBIN 0.2 mg/dL (<0.1-1.0); TOTAL PROTEIN 7.8 g/dL (6.4-8.2)
[2021-03-21 07:30] VITALS: BP 154/44
[2021-03-21 11:30] VITALS: BP 154/61
[2021-03-21 16:00] VITALS: BP 137/53
[2021-03-21 20:00] VITALS: BP 128/66
[2021-03-21 23:37] VITALS: BP 151/76
[2021-03-22 04:00] VITALS: BP 146/65
[2021-03-22 05:07] LABS: HEMATOCRIT 27.6 % (42.0-52.0); HEMOGLOBIN 8.6 gm/dL (14.0-18.0); MCH 25.9 pg (26.0-34.0); MCHC 31.3 g/dL (28.0-37.0); MCV 82.8 fL (80.0-100.0); MPV 8.8 fl. (7.2-11.1); RBC 3.33 mil/uL (4.50-6.00); RDW-CV 17.1 % (10.5-14.5); WBC 14.1 thou/uL (4.0-11.0)
[2021-03-22 05:09] LABS: ALBUMIN 3.2 g/dL (3.4-5.0); CALCIUM 9.3 mg/dL (8.5-10.1); CREATININE 1.2 mg/dL (0.6-1.3); MAGNESIUM 2.4 mg/dL (1.8-2.4); POTASSIUM 5.3 mmol/L (3.5-5.1); TOTAL BILIRUBIN 0.1 mg/dL (<0.1-1.0); TOTAL PROTEIN 7.8 g/dL (6.4-8.2)
[2021-03-22 08:00] VITALS: BP 141/74
[2021-03-22 12:00] VITALS: BP 139/58
[2021-03-22 16:30] VITALS: BP 127/70
[2021-03-22 20:00] VITALS: BP 123/73
[2021-03-23] VITALS: BP 135/53
[2021-03-23 04:00] VITALS: BP 130/64
[2021-03-23 04:01] LABS: HEMATOCRIT 25.9 % (42.0-52.0); MCH 25.8 pg (26.0-34.0); MCV 83.2 fL (80.0-100.0); MPV 8.4 fl. (7.2-11.1); RBC 3.12 mil/uL (4.50-6.00); WBC 13.6 thou/uL (4.0-11.0)
[2021-03-23 04:21] LABS: ALBUMIN 2.8 g/dL (3.4-5.0); CALCIUM 9.4 mg/dL (8.5-10.1); CREATININE 1.2 mg/dL (0.6-1.3); MAGNESIUM 2.3 mg/dL (1.8-2.4); POTASSIUM 5.3 mmol/L (3.5-5.1); TOTAL BILIRUBIN 0.2 mg/dL (<0.1-1.0); TOTAL PROTEIN 6.8 g/dL (6.4-8.2)
[2021-03-23 07:32] VITALS: BP 130/79
[2021-03-23 11:00] VITALS: BP 127/50
[2021-03-23 16:36] VITALS: BP 157/69
[2021-03-23 20:00] VITALS: BP 129/63
[2021-03-24 00:29] VITALS: BP 117/60
[2021-03-24 04:39] VITALS: BP 116/65
[2021-03-24 08:00] VITALS: BP 128/47
[2021-03-24] MEDS ORDERED: TRAMADOL 50 MG50 MG PO (11:03)
[2021-03-24] MEDS ORDERED: PERCOCET 10-321 EACH PO (11:03)
[2021-03-24] MEDS ORDERED: FLEXERIL PO (11:03)
[2021-03-24] MEDS ORDERED: LEVOFLOXACIN500 MG PO (11:03)
[2021-03-24] MEDS ORDERED: PREDNISONE 10 M10 MG PO (11:03)
[2021-03-24] MEDS ORDERED: LORAZEPAM 0.50.5 MG PO (11:03)
[2021-03-24 11:52] VITALS: BP 139/35
== END 2021-03-24 14:00 | DRG 177 ==
LOC: M.ERS 07:44 → M.TBA-ER 09:22 → M.2W 09:22
PROVIDERS: Emergency Medicine Emergency Medical Services; ADMIT Internal Medicine; ATTEND Internal Medicine
DX: J15.6 Pneumonia due to other Gram-negative bacteria (principal); J96.01 Acute respiratory failure with hypoxia; I50.33 Acute on chronic diastolic (congestive) heart failure; J44.0 Chronic obstructive pulmonary disease with (acute) lower respiratory infection; N17.9 Acute kidney failure, unspecified; J44.1 Chronic obstructive pulmonary disease with (acute) exacerbation; E66.01 Morbid (severe) obesity due to excess calories; R07.89 Other chest pain; Z20.822 Contact with and (suspected) exposure to COVID-19; E11.9 Type 2 diabetes mellitus without complications; I48.91 Unspecified atrial fibrillation; Z87.891 Personal history of nicotine dependence; Z68.38 Body mass index [BMI] 38.0-38.9, adult; Z87.81 Personal history of (healed) traumatic fracture; Z79.899 Other long term (current) drug therapy

== ENCOUNTER 2021-04-08 16:44 | Inpatient (IN) | payer BC ==
[~2021-04-08] VITALS: Ht 188 cm; Wt 131.1 kg
--- NOTE | ~2021-04-08 | EMS ---
[facility] [address] [facility] [place] [address] EMS Patient Care Report Name: MYA ARGUELLO Room: [address] IN M.R.#: [id number] Admission: 04/08/21 Attend Phys: Roxie Grimm Discharge: 04/14/21 Date of : 51 Report #: [id number] THIS REPORT FOR: //name// Report Transmitted: 04/17/2021 14:38 EMS Care Summary [facility] [place] Incident [id number] @ 04/08/2021 15:54 Incident Location [address] [place] [address] Patient mya arguello Male, 65 Years 1955 Patient Address [address] [id number] Patient History Chronic Obstructive Pulmonary Disease (COPD),Congenital malformation of heart, unspecified,Acute respiratory failure,Anemia, unspecified,Atrial Fibrillation,Type 2 diabetes mellitus,Obesity, unspecified, Patient Allergies No known allergies, Patient Medications Tylenol, Actos, Diltiazem, Tamsulosin, Humalog, Levofloxacin, Chief Complaint Shortness of Breath Disposition Transported No Lights/Boring Dispatch Reason No Other Appropriate Choice Transported To [facility] Narrative dispatched to the above address for a soa. while responding dispatch also informed us that pt, has bad labs. at our arrival to the scene. we were let [facility] [place] [address] EMS Patient Care Report Name: MYA ARGUELLO Room: [address] IN M.R.#: [id number] Admission: 04/08/21 Attend Phys: Roxie Grimm Discharge: 04/14/21 Date of : 51 Report #: [id number] into the building by staff, which pointed us to the [address]. at our arrival to the [address] we met with the nurse. which stated pt has a calcium level of 15. p also has copd, and chf. the nurse also reported pt is short of air. pt nurse stated she couldn't hear lung sounds on the right side of his chest. at our arrival to pt side. we came to find this 65 y/o m sitting up right having a little trouble breathing. pt stated he has been soa for a few days. pt stated he would like to be transported to [facility]. pt v/s were taken, with spo2 placed. pt lung sounds where checked. crew couldn't here any air movement on the pt right side. pt was placed on the four lead ecg, with a 12 lead ekg obtained. when the crew when to move the pt over to the cot. pt stated, he would like to stand and pivot. pt family in the room stated that he is not to stand on his broken leg. the pt stated thats how he is going to get on our cot. pt stood up to get on the cot. pt nurse had a hold of the gate belt that was on the pt, and the crew assisted him over. pt was secured on the cot. the cot was moved to the ambulance, and secured. an iv was placed, with a d-stick preformed. a blood draw was preformed. a non emergency transport to [facility] was started, with report called in. assessment see flow chart rx see flow chart transport pt rested on the cot. pt stated that he is feeling a bit better. pt had no other changes during transport. pt was monitored for any changes. pt remained stable for transport. desteatedilson pt arrived stable to [facility] where he was wheeled in on the cot. where staff told us that we will be going to ed bed 4. pt was wheeled to ed bed 4, on the cot. where nursing staff took over care, with a full report given. Initial Vitals @16:13SpO2: 98, @16:13SpO2: 84, @16:15SpO2: 93, @16:22SpO2: 96, @16:32SpO2: 94, @16:36SpO2: 95, @16:40SpO2: 95, @16:14 @16:15P: 84,R: 18,BP: 141/44, @16:26P: 94,R: 18,BP: 149/71, @16:36P: 86,R: 18,BP: 137/60, @16:15GCS: 15, @16:26GCS: 15, @16:36GCS: 15, @16:27Glucose: 108, Assessments @16:10MENTAL:SKIN:HEENT:LUNG SOUNDS:ABDOMEN:PELVIS//GI:EXTREMITIES:PULSE:NEURO: Impression [facility] [address] [place] [address] EMS Patient Care Report Name: MYA ARGUELLO Room: [address] IN M.R.#: [id number] Admission: 04/08/21 Attend Phys: Roxie Grimm Discharge: 04/14/21 Date of : 51 Report #: [id number] Pulmonary Edema, Acute Procedures @16:27 cc () Site: Hand-LeftResponse: UnchangedSucceeded@16:28 cc () Response: UnchangedSucceeded@16:1412-Lead ECGResponse: UnchangedSucceeded@16:10Patient monitoringResponse: UnchangedSucceeded Timeline 16:10,Call Received 15:52,Dispatch Notified 15:52,Psap Call 15:54,Dispatched 15:54,En Route 16:08,On Scene 16:10,At Patient 16:10,Patient monitoring,Response: UnchangedSucceeded, 16:13,BP: / M,PULSE: ,RR: R,SPO2: 98 Ox,ETCO2: ,BG: ,PAIN: ,GCS: , 16:13,BP: / M,PULSE: ,RR: R,SPO2: 84 Ox,ETCO2: ,BG: ,PAIN: ,GCS: , 16:14,12-Lead ECG,Response: UnchangedSucceeded, 16:14,BP: / M,PULSE: ,RR: R,SPO2: Ox,ETCO2: ,BG: ,PAIN: ,GCS: , 16:15,BP: / M,PULSE: ,RR: R,SPO2: 93 Ox,ETCO2: ,BG: ,PAIN: ,GCS: , 16:15,BP: 141/44 M,PULSE: 84,RR: 18 R,SPO2: Ox,ETCO2: ,BG: ,PAIN: ,GCS: , 16:15,BP: / M,PULSE: ,RR: R,SPO2: Ox,ETCO2: ,BG: ,PAIN: ,GCS: 15, 16:22,BP: / M,PULSE: ,RR: R,SPO2: 96 Ox,ETCO2: ,BG: ,PAIN: ,GCS: , 16:26,BP: 149/71 M,PULSE: 94,RR: 18 R,SPO2: Ox,ETCO2: ,BG: ,PAIN: ,GCS: , 16:26,BP: / M,PULSE: ,RR: R,SPO2: Ox,ETCO2: ,BG: ,PAIN: ,GCS: 15, 16:27, cc Site: Hand-Left,Response: UnchangedSucceeded, 16:27,BP: / M,PULSE: ,RR: R,SPO2: Ox,ETCO2: ,B,PAIN: ,GCS: , 16:28, cc Site: ,Response: UnchangedSucceeded, 16:29,Depart Scene 16:32,BP: / M,PULSE: ,RR: R,SPO2: 94 Ox,ETCO2: ,BG: ,PAIN: ,GCS: , 16:36,BP: / M,PULSE: ,RR: R,SPO2: 95 Ox,ETCO2: ,BG: ,PAIN: ,GCS: , 16:36,BP: 137/60 M,PULSE: 86,RR: 18 R,SPO2: Ox,ETCO2: ,BG: ,PAIN: ,GCS: , 16:36,BP: / M,PULSE: ,RR: R,SPO2: Ox,ETCO2: ,BG: ,PAIN: ,GCS: 15, 16:39,At Destination 16:40,BP: / M,PULSE: ,RR: R,SPO2: 95 Ox,ETCO2: ,BG: ,PAIN: ,GCS: , 16:57,Call Closed Disclaimer v1.1 Copyright 2020 [employer] This EMS Care Summary contains data elements from the applicable legal record (which may be displayed differently). It is designed to provide pertinent information for the following purposes: continuity of care, clinical quality, and state data reporting. The complete legal record is available to ED staff and administrators of the receiving hospital in [employer]'s Patient Tracker. All data is provided "as is."
[~2021-04-08 16:44] MED LIST changes: +FLEXERIL PO; +IPRAT-ALBUT 0.5-3 ML INH; +LEVOFLOXACIN500 MG PO
[2021-04-08 16:50] VITALS: BP 156/76
[2021-04-08 17:05] LABS: ABSOLUTE BASOPHILS 0.1 thou/uL (0.0-0.2); ABSOLUTE LYMPHOCYTES 1.1 thou/uL (0.8-5.3); ABSOLUTE MONOCYTES 0.7 thou/uL (0.0-1.2); ABSOLUTE NEUTROPHILS 12.3 thou/uL (1.6-8.1); BASOPHILS 0.6 %; EOSINOPHILS 0.1 %; HEMATOCRIT 29.9 % (42.0-52.0); HEMOGLOBIN 9.5 gm/dL (14.0-18.0); LYMPHOCYTES 7.4 %; MCH 26.2 pg (26.0-34.0); MCHC 31.8 g/dL (28.0-37.0); MCV 82.3 fL (80.0-100.0); MONOCYTES 5.1 %; MPV 8.4 fl. (7.2-11.1); NUCLEATED RBCS 0 /100WBC; PLATELET COUNT* 370 thou/uL (150-400); POLYS 86.8 %; RBC 3.64 mil/uL (4.50-6.00); RDW-CV 17.3 % (10.5-14.5); WBC 14.2 thou/uL (4.0-11.0)
[2021-04-08 17:27] LABS: CREATININE 2.1 mg/dL (0.6-1.3); POTASSIUM 4.4 mmol/L (3.5-5.1)
[2021-04-08 17:28] LABS: ANISOCYTOSIS 1+; PLATELET ESTIMATE ADEQUATE
[2021-04-08 17:30] LABS: CALCIUM 16.1 mg/dL (8.5-10.1)
[2021-04-08 17:36] LABS: ALBUMIN 2.8 g/dL (3.4-5.0); TOTAL BILIRUBIN 0.2 mg/dL (<0.1-1.0); TOTAL PROTEIN 7.4 g/dL (6.4-8.2)
[2021-04-08 20:00] VITALS: BP 147/48
[2021-04-08 20:18] VITALS: BP 147/71
[2021-04-09] VITALS: BP 174/69
[2021-04-09 04:00] VITALS: BP 146/62
[2021-04-09 08:00] VITALS: BP 159/58
--- NOTE | 2021-04-09 10:45 | EKG ---
[place] [address] ELECTROCARDIOGRAM REPORT Name: LYN BECK Room: [address] ADM IN M.R.#: [id number] Admission: 04/08/21 Attend Phys: Crow Sam Discharge: Date of : 51 Date of Service: 04/08/21 1650 Report #: [id number] THIS REPORT FOR: //name// [facility] ED Test Date: 2021-04-08 Test Time: 16:50:28 Pat Name: LYN BECK Department: Room: [facility] Gender: M Enrollment Counselor: FLOWER : 1955 Requested By: Geoffrey Cary Order Number: [id number] MD: Steve Galvan Measurements Intervals [place] Rate: 89 P: PA: QRS: 67 QRSD: 101 T: QT: 314 QTc: 382 Interpretive Statements Atrial fibrillation artifact noted Low voltage, precordial leads Borderline T abnormalities, inferior leads rsr' in V1 Compared to ECG 03/20/2021 07:47:13 no change Electronically Signed On 04-09-2021 10:45:07 CDT by Steve Galvan [email or web address] <ELECTRONICALLY SIGNED> By: Steve Galvan MD, [facility] 04/09/21 1045 1650 1650 Steve Galvan MD, [facility] /EPI
[2021-04-09 13:46] VITALS: BP 151/57
[2021-04-09 16:00] VITALS: BP 137/51
[2021-04-09 16:48] LABS: PO2 68.8 mmHg (75.0-100.0); pH 7.466 (7.340-7.450)
[2021-04-09 20:04] VITALS: BP 147/52
[2021-04-10] VITALS: BP 131/54
[2021-04-10 04:00] VITALS: BP 177/57
[2021-04-10 05:16] LABS: BE 14.7 mmol/L (-2 to +3); PO2 78.7 mmHg (75.0-100.0); pH 7.424 (7.340-7.450)
[2021-04-10 05:18] LABS: PCO2 64.5 mmHg (35.0-45.0)
[2021-04-10 08:25] VITALS: BP 138/58
[2021-04-10 11:18] LABS: INR 1.1; PROTIME 11.4 Seconds (9.20-11.50)
[2021-04-10 11:21] LABS: ABSOLUTE BASOPHILS 0.1 thou/uL (0.0-0.2); ABSOLUTE LYMPHOCYTES 0.7 thou/uL (0.8-5.3); ABSOLUTE MONOCYTES 0.8 thou/uL (0.0-1.2); BASOPHILS 0.3 %; HEMATOCRIT 28.4 % (42.0-52.0); HEMOGLOBIN 9.1 gm/dL (14.0-18.0); LYMPHOCYTES 3.2 %; MCH 26.3 pg (26.0-34.0); MCHC 32.1 g/dL (28.0-37.0); MCV 82.1 fL (80.0-100.0); MONOCYTES 3.7 %; MPV 8.5 fl. (7.2-11.1); NUCLEATED RBCS 0 /100WBC; PLATELET COUNT* 397 thou/uL (150-400); POLYS 92.8 %; RBC 3.47 mil/uL (4.50-6.00); RDW-CV 17.9 % (10.5-14.5); WBC 22.7 thou/uL (4.0-11.0)
[2021-04-10 11:29] LABS: ANION GAP < 0 mmol/L (7-16); BUN 64 mg/dL (7-18); CHLORIDE 95 mmol/L (98-107); CO2 42 mmol/L (21-32); CREATININE 2.3 mg/dL (0.6-1.3); GLUCOSE 203 mg/dL (70-99); POTASSIUM 4.2 mmol/L (3.5-5.1); SODIUM 136 mmol/L (136-145)
[2021-04-10 12:00] VITALS: BP 142/62
[2021-04-10 13:31] LABS: ALBUMIN 2.9 g/dL (3.4-5.0); DIRECT BILIRUBIN 0.1 mg/dL (<0.1-0.3); MAGNESIUM 2.9 mg/dL (1.8-2.4); PHOSPHORUS* 5.7 mg/dL (2.5-4.9); TOTAL BILIRUBIN 0.2 mg/dL (<0.1-1.0); TOTAL PROTEIN 7.2 g/dL (6.4-8.2)
[2021-04-10 16:00] VITALS: BP 120/44
[2021-04-10 16:23] LABS: BF RBC 16627 /mm3; TOTAL CELL COUNT 132 /mm3
[2021-04-10 16:31] LABS: SOURCE PLEURAL FLUID
[2021-04-10 16:32] LABS: CLARITY CLOUDY; TOTAL VOLUME 1440 ml
[2021-04-10 16:38] LABS: BF LYMPHOCYTES 50 %; BF MONOCYTES 7 %; BF POLYS 43 %; BF TISSUE 10 /100 WBC
[2021-04-10 20:00] VITALS: BP 111/42
[2021-04-10 23:02] LABS: URINE BILIRUBIN NEGATIVE (Negative); URINE BLOOD TRACE (Negative); URINE CLARITY CLEAR; URINE COLOR YELLOW; URINE GLUCOSE-RANDOM NEGATIVE (Negative); URINE KETONES NEGATIVE (Negative); URINE LEUKOCYTES NEGATIVE (Negative); URINE NITRITE NEGATIVE (Negative); URINE PROTEIN NEGATIVE (Negative); URINE SPECIFIC GRAVITY >= 1.030 (1.005-1.030); URINE UROBILINOGEN 0.2 E.U./dl (0.2-1.0)
[2021-04-11 00:13] VITALS: BP 139/91
[2021-04-11 02:46] LABS: HEMATOCRIT 25.3 % (42.0-52.0); HEMOGLOBIN 8.2 gm/dL (14.0-18.0); MCH 26.2 pg (26.0-34.0); MCHC 32.3 g/dL (28.0-37.0); MCV 81.2 fL (80.0-100.0); MPV 8.1 fl. (7.2-11.1); NUCLEATED RBCS 0 /100WBC; PLATELET COUNT* 345 thou/uL (150-400); RBC 3.12 mil/uL (4.50-6.00); WBC 20.7 thou/uL (4.0-11.0)
[2021-04-11 02:51] LABS: ALBUMIN 2.5 g/dL (3.4-5.0); CREATININE 2.6 mg/dL (0.6-1.3); MAGNESIUM 2.7 mg/dL (1.8-2.4); PHOSPHORUS* 4.8 mg/dL (2.5-4.9); POTASSIUM 4.1 mmol/L (3.5-5.1); TOTAL BILIRUBIN 0.3 mg/dL (<0.1-1.0); TOTAL PROTEIN 6.1 g/dL (6.4-8.2)
[2021-04-11 02:56] LABS: CALCIUM 15.9 mg/dL (8.5-10.1)
[2021-04-11 03:02] LABS: CREATININE 2.6 mg/dL (0.6-1.3)
[2021-04-11 03:05] LABS: CALCIUM 15.4 mg/dL (8.5-10.1)
[2021-04-11 03:44] LABS: ABSOLUTE LYMPHOCYTES 0.6 thou/uL (0.8-5.3); ABSOLUTE MONOCYTES 1.2 thou/uL (0.0-1.2); ABSOLUTE NEUTROPHILS 18.8 thou/uL (1.6-8.1)
[2021-04-11 03:45] LABS: PLATELET ESTIMATE ADEQUATE
[2021-04-11 03:46] LABS: POLYCHROMASIA 1+
[2021-04-11 04:00] VITALS: BP 103/58
[2021-04-11 08:26] VITALS: BP 133/52
[2021-04-11 12:00] VITALS: BP 151/51
[2021-04-11 12:42] LABS: SMEAR FOR EOSINOPHILS No Eosinophils Seen
--- NOTE | 2021-04-11 13:33 | CON ---
[address] [address] CONSULTATION Name: LYN BECK Room: [address] ADM IN M.R.#: [id number] Admission: 04/08/21 Attend Phys: Roxie Grimm Discharge: Date of : 51 Report #: [id number] THIS REPORT FOR: cc: Yash Brenner MD, Matthew W. MD Pervez, Adeel MD ~ DOC #: [id number] Douglas Ocampo MD DATE OF CONSULTATION: 04/10/2021 CONSULTATION REQUESTED BY: Dr. King. INDICATION FOR CONSULTATION: Pleural effusion with left lung collapse. HISTORY OF PRESENT ILLNESS: This is a 65-year-old gentleman. His past medical history as mentioned below. This does include a history of oxygen dependent chronic obstructive pulmonary disease. The patient also uses a BiPAP while asleep with which he had limited compliance. We are familiar with this patient and he has had several previous admissions to this hospital; I had last seen him in February. At that time, he was undergoing orthopedic surgery for ankle fracture. The patient also is anticoagulated with Eliquis for atrial fibrillation. His last available CT chest before this admission is from January; patient had infiltrates at that time, we in fact treated him and then we had repeated another CT which had in fact showed a significant improvement in those infiltrates. His admission for orthopedic surgery was after this. He in fact, more recently also had one more admission to this hospital in March. At that time, he again on chest x-ray has had infiltrates and was treated with Zithromax and ceftriaxone. The patient has now again presented with worsening shortness of breath. He reports that his shortness of breath has considerably worse and he also has been having a cough. There is only a small amount of sputum production. He has had some chest pain with respiration and coughing as well. At the time of my evaluation, the patient was on BiPAP and therefore communication was limited. He did not report fever or chills. He does have swelling of lower extremities. He still does have some pain at the surgical site, but this is better. The patient upon admission had a near total whiteout of the left lung on the chest x-ray. There is a large pleural effusion seen on the CT as well. He also is in acute renal failure. His baseline creatinine is normal. Creatinine right now is 2.3. The patient's calcium is also markedly elevated above 16. The patient has had disturbed sleep at night as well as sleepiness during the day while [place] [address] CONSULTATION Name: LYN BECK Room: [address] IN .R.#: [id number] Admission: 04/08/21 Attend Phys: Roxie Grimm Discharge: Date of : 51 Report #: [id number] REVIEW OF SYSTEMS: A 12-point is negative except as described above. 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 His last available echocardiogram shows a normal left ventricular ejection fraction of 60-65% with a pulmonary artery systolic of 51, diabetes, obesity, body mass index has been around 38-39, recent left ankle fracture as above, previous history of fracture of the right lower extremity, lesion on right thigh, which was positive for methicillin-resistant Staphylococcus aureus and he has had incision and drainage in the past. SOCIAL HISTORY: An extensive history of smoking more than a pack a day for several decades. He has now discontinued. Unclear exactly when he discontinued. No known history of heavy alcohol use or illegal drug use. ALLERGIES: No known drug allergies. CURRENT MEDICATIONS: List in [place] reviewed. Home medication also list in [place] reviewed. Note that he is on Eliquis long-term. FAMILY HISTORY: There is no pertinent family history. PHYSICAL EXAMINATION: GENERAL: He was alert, awake and oriented. He was markedly short of breath though. I had evaluate him before his thoracentesis. VITAL SIGNS: He is on BiPAP of 10/5 with 45% FIO2, O2 saturation in the mid 90s, respiratory rate was in the high 20s, pulse 80, blood pressure 138/58, afebrile with a temperature of 36.1. HEENT: Head is normocephalic and atraumatic. Pupils are equal and reactive, narrow airway. There is no throat erythema. Throat examination is limited due to the presence of BiPAP. NECK: Does not show raised JVP asymmetry, mass or lymph nodes. CHEST: Decreased expansion on the left side on inspection and palpation. On auscultation, I did not hear any breath sounds on the left side. I did hear breath sounds in the right side. I did not hear any added sounds. HEART: Regular with no murmur. ABDOMEN: Mildly distended, nontender. EXTREMITIES: Lower extremities do show 2+ edema. There is no calf tenderness. There are some changes consistent with chronic venous insufficiency; skin however, is dry and intact. NEUROLOGIC: He did move all extremities bilaterally equally and spontaneously. There [place] [address] CONSULTATION Name: LYN BECK Room: [address] IN [facility].#: [id number] Admission: 04/08/21 Attend Phys: Roxie Grimm Discharge: Date of : 51 Report #: [id number] IMAGING DATA: The patient had a CT of the chest without contrast performed; I reviewed both the films as well as report. There is a large pleural effusion on the left side. I suspect that there is underlying infiltrates. These are not clearly visualized due to the presence of significant atelectasis secondary to the pleural effusion. There are rib lesions as well as liver lesions, which are suspicious of a metastatic malignant disease. These findings are new compared with the patient's previous imaging from January. The patient's lab work, which is consistent with jrbdf-dy-jfctltm hypercarbic respiratory failure in [facility] reviewed. He is also in acute renal failure. His COVID-19 antigen is negative. ASSESSMENT AND PLAN: 1. Large left-sided pleural effusion/left lung collapse. The patient already had a thoracentesis since I last examined him. Per the patient's RN, there is marked improvement in his shortness of breath and he is now down to 6 liters nasal cannula. I will go ahead and obtain a post-thoracentesis chest x-ray, recommend holding off on Eliquis for now. If the pleural effusion is not fully evacuated with the procedure today then he may need a repeat thoracentesis. There is a suspicion of malignant disease; however, I note that these findings were not present on the CT performed in January; in fact, he had two CTs in January of the chest. Therefore, if it is a malignancy, this is an unusually rapidly advancing malignancy. I still consider possible that this could be a septic process instead. I would therefore cover broadly; patient is already on Zithromax and ceftriaxone recently. This time, we would continue Zosyn considering that he has a previous history of methicillin-resistant Staphylococcus aureus infection. I will go ahead and give him linezolid as well. More cultures and serologies are also ordered 2. Pulmonary infiltrates. I suspect that there are pulmonary infiltrates present; however, these are not clearly visualized due to the presence of a large pleural effusion. Further discussion is as above. 3. Rexum-uj-jskajui hypercarbic respiratory failure. Recommend continue with BiPAP while asleep. I will review the post-thoracentesis chest x-ray if not otherwise indicated. Based on the chest x-ray, then I intend to increase his BiPAP pressures. 4. Chronic obstructive pulmonary disease exacerbation. The primary etiology of his decompensation is a pleural effusion and not in bronchospasm. I will continue with Solu-Medrol; however, I will start cutting down the dose. We will continue with nebulized bronchodilators. 5. Acute renal failure with fluid overload and severe hypercalcemia. Note that his baseline creatinine is 1.2. For his acute renal failure, I did obtain a renal ultrasound and consulted Nephrology. We will await Nephrology opinion regarding his elevated calcium level as well. Meanwhile, as long as his respiratory status will be maintained, I would tolerate some fluid overload and therefore, for now, I discontinued his Lasix. 6. Obstructive sleep apnea, see discussion above. [address] [address] CONSULTATION Name: LYN BECK Room: [address] IN M.R.#: [id number] Admission: 04/08/21 Attend Phys: Roxie Grimm Discharge: Date of : 51 Report #: [id number] 7. Atrial fibrillation. His heart rate is normal at this time. For now, holding Eliquis as he may need more procedures. 8. Rib and hepatic lesions. Once his pleural effusion has been evacuated optimally I plan to obtain a CT chest, abdomen and pelvis with oral contrast. 9. Diabetes. Blood glucose monitoring the primary service. 10. Gastroesophageal reflux disease/gastrointestinal prophylaxis, proton pump inhibitors. 11. Clostridium difficile prophylaxis. We will order Lactinex. 12. History of diastolic congestive heart failure. Note that he is on lisinopril. I held lisinopril pending Nephrology opinion as he opinion as he is in acute renal failure. Thanks for this consultation. MD ALISHA Casper/AGUSTINA <ELECTRONICALLY SIGNED> By: Douglas Ocampo MD 04/11/21 1333 1950 [id number] m Ocampo MD /nt
[2021-04-11 16:06] LABS: IgA 277 mg/dL (61-437); IgG 625 mg/dL (603-1613); IgM 56 mg/dL (20-172)
[2021-04-11 17:56] LABS: PO2 118.3 mmHg (75.0-100.0); pH 7.466 (7.340-7.450)
[2021-04-11 17:58] LABS: PCO2 51.3 mmHg (35.0-45.0)
[2021-04-11 20:00] VITALS: BP 119/41
[2021-04-11 21:06] LABS: MYCOPLASMA PNEUMONIA IgG 347 U/mL (0-99); MYCOPLASMA PNEUMONIA IgM <770 U/mL (0-769)
[2021-04-12] VITALS: BP 113/54
[2021-04-12 03:12] LABS: BE 12.4 mmol/L (-2 to +3); PO2 80.5 mmHg (75.0-100.0)
[2021-04-12 03:14] LABS: PCO2 56.2 mmHg (35.0-45.0)
[2021-04-12 04:04] VITALS: BP 129/63
[2021-04-12 04:57] LABS: ABSOLUTE LYMPHOCYTES 0.7 thou/uL (0.8-5.3); ABSOLUTE MONOCYTES 0.9 thou/uL (0.0-1.2); ABSOLUTE NEUTROPHILS 15.5 thou/uL (1.6-8.1); HEMATOCRIT 26.6 % (42.0-52.0); HEMOGLOBIN 8.7 gm/dL (14.0-18.0); LYMPHOCYTES 3.9 %; MCH 26.8 pg (26.0-34.0); MCHC 32.6 g/dL (28.0-37.0); MCV 82.3 fL (80.0-100.0); MONOCYTES 5.5 %; MPV 8.4 fl. (7.2-11.1); NUCLEATED RBCS 0 /100WBC; PLATELET COUNT* 349 thou/uL (150-400); POLYS 90.6 %; RBC 3.24 mil/uL (4.50-6.00); RDW-CV 17.9 % (10.5-14.5); WBC 17.1 thou/uL (4.0-11.0)
[2021-04-12 05:07] LABS: ALBUMIN 2.7 g/dL (3.4-5.0); CREATININE 2.4 mg/dL (0.6-1.3); MAGNESIUM 2.5 mg/dL (1.8-2.4); POTASSIUM 4.5 mmol/L (3.5-5.1); TOTAL BILIRUBIN 0.4 mg/dL (<0.1-1.0); TOTAL PROTEIN 6.1 g/dL (6.4-8.2)
[2021-04-12 05:30] LABS: CALCIUM 14.7 mg/dL (8.5-10.1)
[2021-04-12 09:00] VITALS: BP 123/68
[2021-04-12 09:08] LABS: KAPPA FREE LIGHT CHAINS 32.5 mg/L (3.3-19.4); LAMBDA FREE LIGHT CHAINS 16.9 mg/L (5.7-26.3)
[2021-04-12 09:22] LABS: BF RBC 1219 /mm3; TOTAL CELL COUNT 473 /mm3
[2021-04-12 09:23] LABS: TOTAL VOLUME 10 ml
[2021-04-12 09:24] LABS: CLARITY SLIGHTLY HAZY
[2021-04-12 09:55] LABS: BF LYMPHOCYTES 27 %; BF MONOCYTES 1 %; BF POLYS 72 %; SOURCE PLEURAL FLUID
[2021-04-12 12:09] VITALS: BP 143/54
[2021-04-12 16:06] LABS: M-SPIKE Not Observed g/dL (Not Observed)
[2021-04-12 16:12] VITALS: BP 127/45
[2021-04-12 20:00] VITALS: BP 131/43
[2021-04-13] VITALS: BP 121/59
[2021-04-13 04:00] VITALS: BP 149/59
[2021-04-13 04:18] LABS: ABSOLUTE BASOPHILS 0.1 thou/uL (0.0-0.2); ABSOLUTE LYMPHOCYTES 0.8 thou/uL (0.8-5.3); ABSOLUTE MONOCYTES 1.3 thou/uL (0.0-1.2); ABSOLUTE NEUTROPHILS 14.7 thou/uL (1.6-8.1); BASOPHILS 0.3 %; EOSINOPHILS 0.1 %; HEMATOCRIT 26.5 % (42.0-52.0); HEMOGLOBIN 8.4 gm/dL (14.0-18.0); LYMPHOCYTES 4.5 %; MCH 26.1 pg (26.0-34.0); MCHC 31.7 g/dL (28.0-37.0); MCV 82.3 fL (80.0-100.0); MONOCYTES 7.9 %; MPV 8.2 fl. (7.2-11.1); NUCLEATED RBCS 0 /100WBC; PLATELET COUNT* 316 thou/uL (150-400); POLYS 87.2 %; RBC 3.21 mil/uL (4.50-6.00); RDW-CV 18.1 % (10.5-14.5); WBC 16.9 thou/uL (4.0-11.0)
[2021-04-13 04:37] LABS: ALBUMIN 2.6 g/dL (3.4-5.0); ALKALINE PHOSPHATASE 107 U/L (46-116); ANION GAP < 0 mmol/L (7-16); BUN 80 mg/dL (7-18); CHLORIDE 100 mmol/L (98-107); CO2 38 mmol/L (21-32); CREATININE 2.3 mg/dL (0.6-1.3); GLUCOSE 145 mg/dL (70-99); MAGNESIUM 2.5 mg/dL (1.8-2.4); POTASSIUM 4.4 mmol/L (3.5-5.1); SGOT 49 U/L (15-37); SGPT 19 U/L (30-65); SODIUM 136 mmol/L (136-145); TOTAL BILIRUBIN 0.2 mg/dL (<0.1-1.0); TOTAL PROTEIN 5.8 g/dL (6.4-8.2)
[2021-04-13 08:00] VITALS: BP 144/64
[2021-04-13 16:23] VITALS: BP 112/60
[2021-04-13 19:30] VITALS: BP 111/67
[2021-04-13 20:00] VITALS: BP 130/68
[2021-04-14] VITALS (7 sets, daily range): BP systolic 93–128; BP diastolic 43–55
[2021-04-14 05:21] LABS: HEMATOCRIT 25.6 % (42.0-52.0); HEMOGLOBIN 8.2 gm/dL (14.0-18.0); MCH 26.6 pg (26.0-34.0); MCHC 32.3 g/dL (28.0-37.0); MCV 82.3 fL (80.0-100.0); MPV 7.9 fl. (7.2-11.1); RBC 3.1 mil/uL (4.50-6.00); RDW-CV 17.8 % (10.5-14.5); WBC 15.1 thou/uL (4.0-11.0)
[2021-04-14 06:43] LABS: ALBUMIN 2.5 g/dL (3.4-5.0); CREATININE 2.2 mg/dL (0.6-1.3); POTASSIUM 4.1 mmol/L (3.5-5.1); TOTAL BILIRUBIN 0.4 mg/dL (<0.1-1.0); TOTAL PROTEIN 5.3 g/dL (6.4-8.2)
[2021-04-14 06:46] LABS: CALCIUM 12.1 mg/dL (8.5-10.1)
[2021-04-14] MEDS ORDERED: LEVSIN-SL0.125 MG SUBLING (12:27)
[2021-04-14 13:09] LABS: BODY FLUID PROTEIN 2.5 g/dL (())
[2021-04-14 13:09] LABS: BODY FLUID PROTEIN 3.7 g/dL (())
--- NOTE | 2021-04-15 12:38 | CON ---
[address] [address] CONSULTATION Name: LYN BECK Room: [address] IN M.R.#: [id number] Admission: 04/08/21 Attend Phys: Roxie Grimm Discharge: 04/14/21 Date of : 51 Report #: [id number] THIS REPORT FOR: cc: Yash Brenner MD, Matthew W. MD Arakelov, Alexandr V. MD ~ DOC #: [id number] Feliz Wolf MD DATE OF CONSULTATION: 04/11/2021 REQUESTING PHYSICIAN: Dr. Sam. Consultation was done by me today on 04/11/2021. REASON FOR CONSULTATION: Acute kidney injury and hypercalcemia. HISTORY OF PRESENT ILLNESS: The patient is a very pleasant 65-year-old gentleman with medical history significant for COPD, diabetes mellitus type 2, CHF, and chronic atrial fibrillation, presents with complaints of shortness of breath and weakness. He was diagnosed with a large left pleural effusion and also had some lesions in the liver and the bone. Also had significant hypercalcemia with calcium of 16 and developed acute kidney injury. The patient was examined by Dr. [place]. Her assessment was most likely the patient has lung cancer or maybe a multiple myeloma. So, workup is pending. His creatinine on admission was 2.1, it is up to 2.6 now. PAST MEDICAL HISTORY: As I mentioned earlier. SOCIAL HISTORY: Positive for tobaccoism. FAMILY HISTORY: Negative for renal disease. MEDICATIONS: Reviewed. REVIEW OF SYSTEMS: Positive for some chronic shortness of breath, weakness, low energy level. LABORATORY DATA: CT scan of the abdomen and pelvis revealed multiple hepatic lesions and vbrsiwap-yu-jjfmy left pleural effusion and multiple osseous metastatic lesions through the ribs and pelvis. There was also pathologic fractures were present in the left and seventh and ninth ribs. PHYSICAL EXAMINATION: GENERAL: He is awake, alert, [place] [address] CONSULTATION Name: LYN BECK Room: [address]#: [id number] Admission: 04/08/21 Attend Phys: Roxie Grimm Discharge: 04/14/21 Date of : 51 Report #: [id number] VITAL SIGNS: Reviewed. NECK: Fatty. LUNGS: Decreased air movement bilaterally. HEART: Irregular rate. ABDOMEN: Obese, soft. EXTREMITIES: With 1+ edema. ASSESSMENT: 1. It looks like he has widely metastatic disease and multiple lesions in the liver and bones and there is a large left pleural effusion. Workup is in progress. 2. Acute kidney injury, likely due to hypercalcemia. 3. Hypercalcemia, likely due to cancer. 4. Cardiomyopathy. 5. Chronic obstructive pulmonary disease. PLAN: 1. Try to keep him euvolemic. 2. Await workup for cancer. 3. I will give him pamidronate IV. His calcium stays high, we will need to bring it down. The patient may require dialysis. Prognosis depends on what kind of cancer he has and whether or not there is any meaningful treatment for that. Feliz Wolf MD ANNA <ELECTRONICALLY SIGNED> By: Feliz Wolf MD 04/15/21 1238 1034 [id number] Wolf MD /nt
--- NOTE | 2021-04-21 12:07 | PATH ---
[address] [address] PATHOLOGY RPT PROCEDURE Name: LYN BECK Room: [address] IN [facility]#: [id number] Admission: 04/08/21 Date of : 51 Discharge: 04/14/21 Report #: [id number] Path Case #: [id number] Note [facility] Accession Number: [id number] TESTS RESULT FLAG UNITS REF RANGE LAB Clinician Provided Cytology Information No. of containers..01 Other (Miscellaneous) Source: LEFT PLEURAL FLUID DIAGNOSIS: 02 LEFT PLEURAL FLUID FEW ATYPICAL CELLS SUSPICIOUS FOR BRONCHOGENIC MALIGNANCY. SCANT CELLULARITY. SEE COMMENT. THIS INTERPRETATION INCLUDES EVALUATION OF A CELL BLOCK. (CHIN:sheryl; 04/19/2021) COMMENT: Few atypical cells are present similar to those seen in the recent prior left pleural effusion, [id number]. A panel of properly controlled immunohistochemcial studies are performed on the cell block and very few atypical cells show the following results: TTF-1 - Positive Synaptophysin - Equivocal positive CD45 - Highlights lymphocytes present Alek-Ep4 - Few faint positive These results are suspicious for but not diagnostic of bronchogenic malignancy including small cell carcinoma. The specimen is limited by very scant cellularity and can not be further qualified. Reviewed with Dr. Veronika Hdz on 04/19/2021 and 04/20/2021 who agrees with the diagnosis. Discussed with Dr. [place]ilera at approximately 1120 on 04/21/2021. (CHIN:mml:kusum; 04/19/2021) Signed out by: 02 Cy Givens MD, Pathologist NPI- [id number] Performed by: 01 Nate Lunsford, Meat Wrapper ([facility]) Gross description: 01 5ML, CLEAR YELLOW, 1 TP 1 CB /LCS 04/19/2021 1058 Local FLAG LEGEND: L-Low Normal,H-High Normal,LL-Alert Low,HH-Alert High <-Panic Low,>-Panic High,A-Abnormal,AA-Critical Abnormal Performed at: [address] [facility] [place] [address] [place] [address] PATHOLOGY RPT PROCEDURE Name: LYN BECK Room: [address] IN [facility]#: [id number] Admission: 04/08/21 Date of : 51 Discharge: 04/14/21 Report #: [id number] Path Case #: [id number] Duane Pizano MD, 02 [facility] [address] Cy Givens MD, Specimen Comment: A courtesy copy of this report has been sent to [phone], [phone] Specimen Comment: 1976 Specimen Comment: Report sent to / DR LANIER Performed at: 01 [facility] [address] [facility] [address], [place], [place] [id number] MD Duane Pizano MD Phone: [phone]
== END 2021-04-14 20:20 | disposition hospice, home (50) | DRG 871 ==
LOC: M.ERS 16:44 → M.TBA-ER 17:34 → M.2W 17:34
PROVIDERS: Family Medicine; Internal Medicine; Internal Medicine Critical Care Medicine; Internal Medicine Hematology & Oncology; Internal Medicine Nephrology; ADMIT Internal Medicine; ATTEND Internal Medicine
PROC: 5A0935A Assistance with Respiratory Ventilation, Less than 24 Consecutive Hours, High Flow/Velocity Cannula (ICD-10-PCS; principal; 2021-04-09)
PROC: 5A09357 Assistance with Respiratory Ventilation, Less than 24 Consecutive Hours, Continuous Positive Airway Pressure (ICD-10-PCS; principal; 2021-04-09)
PROC: 0W9B3ZZ Drainage of Left Pleural Cavity, Percutaneous Approach (ICD-10-PCS; 2021-04-10)
PROC: 5A0935A Assistance with Respiratory Ventilation, Less than 24 Consecutive Hours, High Flow/Velocity Cannula (ICD-10-PCS; 2021-04-10)
PROC: 5A09357 Assistance with Respiratory Ventilation, Less than 24 Consecutive Hours, Continuous Positive Airway Pressure (ICD-10-PCS; 2021-04-10)
PROC: 5A0935A Assistance with Respiratory Ventilation, Less than 24 Consecutive Hours, High Flow/Velocity Cannula (ICD-10-PCS; 2021-04-11)
PROC: 0W9B30Z Drainage of Left Pleural Cavity with Drainage Device, Percutaneous Approach (ICD-10-PCS; 2021-04-11)
PROC: 5A09357 Assistance with Respiratory Ventilation, Less than 24 Consecutive Hours, Continuous Positive Airway Pressure (ICD-10-PCS; 2021-04-11)
PROC: 5A0935A Assistance with Respiratory Ventilation, Less than 24 Consecutive Hours, High Flow/Velocity Cannula (ICD-10-PCS; 2021-04-12)
PROC: 5A09357 Assistance with Respiratory Ventilation, Less than 24 Consecutive Hours, Continuous Positive Airway Pressure (ICD-10-PCS; 2021-04-12)
PROC: 5A0935A Assistance with Respiratory Ventilation, Less than 24 Consecutive Hours, High Flow/Velocity Cannula (ICD-10-PCS; 2021-04-13)
PROC: 5A09357 Assistance with Respiratory Ventilation, Less than 24 Consecutive Hours, Continuous Positive Airway Pressure (ICD-10-PCS; 2021-04-13)
PROC: B548ZZA Ultrasonography of Superior Vena Cava, Guidance (ICD-10-PCS; 2021-04-14)
PROC: 02HV33Z Insertion of Infusion Device into Superior Vena Cava, Percutaneous Approach (ICD-10-PCS; 2021-04-14)
PROC: 5A09357 Assistance with Respiratory Ventilation, Less than 24 Consecutive Hours, Continuous Positive Airway Pressure (ICD-10-PCS; 2021-04-14)
PROC: 0JH63XZ Insertion of Tunneled Vascular Access Device into Chest Subcutaneous Tissue and Fascia, Percutaneous Approach (ICD-10-PCS; 2021-04-14)
PROC: B5181ZA Fluoroscopy of Superior Vena Cava using Low Osmolar Contrast, Guidance (ICD-10-PCS; 2021-04-14)
PROC: 5A0935A Assistance with Respiratory Ventilation, Less than 24 Consecutive Hours, High Flow/Velocity Cannula (ICD-10-PCS; 2021-04-14)
DX: A41.9 Sepsis, unspecified organism (principal); N17.0 Acute kidney failure with tubular necrosis; J96.21 Acute and chronic respiratory failure with hypoxia; J96.22 Acute and chronic respiratory failure with hypercapnia; J69.0 Pneumonitis due to inhalation of food and vomit; S22.39XA Fracture of one rib, unspecified side, initial encounter for closed fracture; J44.1 Chronic obstructive pulmonary disease with (acute) exacerbation; I42.9 Cardiomyopathy, unspecified; E87.2 Acidosis; I50.40 Unspecified combined systolic (congestive) and diastolic (congestive) heart failure; D68.59 Other primary thrombophilia; J98.19 Other pulmonary collapse; J91.8 Pleural effusion in other conditions classified elsewhere; J44.0 Chronic obstructive pulmonary disease with (acute) lower respiratory infection; Z20.822 Contact with and (suspected) exposure to COVID-19; I11.0 Hypertensive heart disease with heart failure; E11.9 Type 2 diabetes mellitus without complications; I48.91 Unspecified atrial fibrillation; E83.52 Hypercalcemia; G47.33 Obstructive sleep apnea (adult) (pediatric); K76.9 Liver disease, unspecified; E78.5 Hyperlipidemia, unspecified; D50.9 Iron deficiency anemia, unspecified; N40.0 Benign prostatic hyperplasia without lower urinary tract symptoms; Z66 Do not resuscitate; M89.9 Disorder of bone, unspecified; M48.9 Spondylopathy, unspecified; Z51.5 Encounter for palliative care; Z87.891 Personal history of nicotine dependence; X58.XXXA Exposure to other specified factors, initial encounter; Y93.89 Activity, other specified; Y92.89 Other specified places as the place of occurrence of the external cause; Y99.8 Other external cause status